=== PATIENT | female | born 1940 | race Caucasian/White ===

== ENCOUNTER 2024-03-17 11:37 | Emergency (ER) | payer OTHER, SELFPAY ==
[2024-03-17 11:45] VITALS: BP 178/91
[2024-03-17 12:28] VITALS: BMI 16.6
--- NOTE | 2024-03-17 12:48 | ED.GENMED ---
History of Present Illness
General
Chief Complaint: Abdominal Symptoms
Source: patient
Exam Limitations: none
Time Seen by Provider: 03/17/24 12:30
Nursing documentation reviewed up to this point in time: agreed with
Travel History
Have you had any contact with someone who has COVID-19?: No
Do you have any symptoms of coronavirus? Fever > 100 degrees, chills, cough, shortness of breath, sore throat, loss of taste or smell, muscle aches, or headache?: No
History of Present Illness
History of Present Illness:
The patient is a 83-year-old female with a past medical history of hypothyroidism, anxiety and depression who reports she is here for testing. She reports she has had a significant weight loss over the last year. She reports over the last few
days, increased frequency of bowel movements that are loose but not watery. She denies any blood in her stool. She denies pain anywhere. She denies fever. She reports she eats plenty of food and access to food is not an issue. She denies chest
pain, shortness of breath, and vomiting. She has no specific complaints other than unexplained weight loss. She reports she is generally 112 pounds. She reports she saw her doctor and was given a prescription to get an ultrasound of her upper
abdomen as well as a mammogram.
Past History
Past History
ED Past Medical History: Hyperthyroidism, Psychiatric and Other
ED Past Surgical History: Other (Sigmoid resection)
Social History
Tobacco: Non-smoker
Alcohol: Occasional
Drug: None
Personal: Single
Living: with family
Employment: Retired
Family History
Family History: CAD
Review of Systems
Review of Systems
Allergies reviewed?: Yes
All Other Systems: ROS reviewed and negative except as documented in HPI and ROS
Constitutional: Reports weight loss
EENT: Reports no symptoms
Respiratory: Reports no symptoms
Cardiac: Reports no symptoms
ABD/GI: Reports other (Loose stool, increased bowel movements)
: Reports no symptoms
Musculoskeletal: Reports no symptoms
Skin: Reports no symptoms
Neurological: Reports no symptoms
Endocrine: Reports no symptoms
Hematologic/Lymphatic: Reports no symptoms
Psychiatric: Reports no symptoms
Phy Exam
Physical Exam
Physical Exam:
Physical Exam
General: no apparent distress, not acutely ill
Neck: supple. no meningeal signs. normal posterior pharynx
Heart: s1/s2 regular rate and rhythm, no murmur. equal radial pulses.
Lungs: no acute respiratory distress. clear bilaterally
Abdomen: normal bowel sounds. not tender. no CVAT
Neuro: alert and oriented. no focal neurological deficits
Skin: no rash
Psychiatric: well kept. interactive and cooperative
Extremities: no edema. no calf tenderness. negative homans. good distal pulses
Course
Orders/Labs/Results
Orders:
Orders
03/17/24 12:47
CR Chest - 2 Views Urgent
Comment:
Reason For Exam: weight loss
US Abdomen Complete/Upper Urgent
Comment:
Reason For Exam: weight loss
03/17/24 12:51
Basic Metabolic Panel Urgent
Complete Blood Count/With Diff Urgent
Lipase Urgent
TSH Urgent
03/17/24 14:02
0.9% Sodium Chloride 500 ml [Nss] 500 ml IV BOLUS
03/17/24 15:38
CT Chest W/o Iv Contrast Urgent
Comment:
Reason For Exam: weight loss
03/17/24 15:57
Potassium Urgent
Abnormal Lab Results
03/17/24
12:51
MCH 32.2 H pg
(27.0-31.0)
Absolute Lymphs (auto) 0.7 L 10^3/uL
(1.2-3.4)
Neutrophils % 78.8 H %
(42.2-75.2)
Lymphocytes % 10.8 L %
(20.5-51.1)
Sodium 132 L mmol/L
(135-145)
BUN 24 H mg/dl
(7-17)
TSH 0.33 L uIU/ml
(0.47-4.68)
03/17/24 12:51
03/17/24 15:57
Vital Signs
Initial and Last Documented VS:
Initial Vital Signs
Temp Resp BP Pulse Ox
98.3 F 18 178/91 98
03/17/24 11:45 03/17/24 11:45 03/17/24 11:45 03/17/24 11:45
Last Documented Vital Signs
Temp Pulse Resp BP Pulse Ox
98.3 F 90 18 160/81 96
03/17/24 11:45 03/17/24 18:26 03/17/24 18:26 03/17/24 18:26 03/17/24 18:26
MDM/Problems Addressed
Differential Diagnosis Includes:
Acutely uncontrolled hyperthyroidism, lung cancer, colon cancer, malabsorption
MDM/Problems Addressed:
Patient complains of chronic weight loss over 1 year
Chronic conditions affecting care:
Hypothyroidism
Acute Exacerbation and/or Progression of Chronic Illness:
Patient may have acutely uncontrolled hyperthyroidism, leading to weight loss
*Radiology
Radiology exam reviewed: preliminary read by ED provider (Chest x-ray read by me. Possible infiltrate left lung) and radiology read reviewed
*Pulse Oximetry
Patient hypoxic: no
*EKG
Interpreted by ED Provider?: NA
*Critical Care Note
Total Time (30-74mins, 75-104mins- exclusive of procedures): Not Applicable
Data Reviewed
Review of Other/Old Records Reveals: Discharge Summary (Discharge summary reviewed from 01/2018 patient underwent open reversible of end colostomy with removal of adhesions.)
Source: patient
Patient Management
Social determinants of health affecting care: Living situation and Strong social support
Escalation/DeEscalation of care consider admission/obs:
Patient remains very well and comfortable appearing. There is no fever, cough or elevated white blood cell count to suggest pneumonia. Patient adamantly denies any cough and has not coughed once in the ED. She is up walking around and looks well.
She is eating and drinking without any difficulty. Patient may have symptoms due to hyperthyroidism. Patient will be encouraged to follow-up with her primary care doctor. I also told patient that she may need to get follow-up with a GI doctor
for possible colonoscopy given her intermittent loose stool and weight loss.
ED Attending Note
-
Portions of this chart may have been created with voice recognition software.� Occasional wrong word or��sound alike� substitutions may have occurred due to the inherent limitations of voice recognition software.
Discharge Plan
Departure
Patient Disposition: Home (Routine Discharge)
Date of Disposition: 03/17/24
Time of Disposition: 18:38
Patient with high blood pressure during this ER visit?: Yes
Condition: Good
Covid-19: Not Applicable
Discharge Problem:
Hyperthyroidism, Unintentional weight loss
Instructions: Hyperthyroidism (overactive thyroid), BLOOD PRESSURE
Prescriptions:
No Action
lactase [Dairy Relief] 1 CAPSULE tablet
1 cap PO AC Qty: 30 0RF
furosemide 20 MG tablet
20 mg PO DAILY Qty: 30 0RF
L.acidoph, paracasei,B. lactis 1 EACH capsule
1 ea PO DAILY
B Complex
1 tab PO DAILY
aspirin 325 MG tablet
325 mg PO DAILY
methimazole 5 MG tablet
5 mg PO DAILY
Patient Comments:
Pt cannot take the generic form
sertraline 50 MG tablet
25 mg PO DAILY
lutein 20 MG tablet
20 mg PO DAILY
cholecalciferol (vitamin D3) 5,000 UNIT tablet,disintegrating
5,000 unit PO DAILY
Bio C Gel
1 cap PO TID
Bone Restore W/ K2
1 tab PO TID
Cod Liver Oil
415 mg PO DAILY
Essential Ointment
1 drp topical PRN PRN (Reason: skin dry)
Vitamin E
180 mg PO DAILY
loperamide 2 MG capsule
2 mg PO Q6HPRN PRN (Reason: loose stools) Qty: 20 0RF
Rx Instructions:
use if more than 3BMs/day
tramadol 50 MG tablet
50 mg PO Q6HPRN PRN (Reason: moderate pain) Qty: 20 0RF
Rx Instructions:
can increase to 2 tabs for seere pain
acetaminophen [Tylenol Extra Strength] 500 MG tablet
1,000 mg PO Q8H 0RF
famotidine 20 MG tablet
20 mg PO BID Qty: 20 0RF
lorazepam 0.5 MG tablet
0.25 mg PO DAILYPRN PRN (Reason: anxiety) 0RF
ascorbic acid (vitamin C) [Vitamin C] 500 MG tablet
500 mg PO TID Qty: 90 2RF
ferrous sulfate [FeroSul] 325 MG tablet
325 mg PO TID Qty: 90 2RF
Saccharomyces boulardii 250 MG capsule
250 mg PO BID Qty: 60 0RF
psyllium husk (aspartame) [Metamucil Fiber Singles] 1 PACKET powder in packet
1 packet PO DAILY 0RF
Referrals:
Diane Brunson MD [Family Provider] -
Activity Restrictions/Additional Instructions:
Please follow-up with your primary care doctor and review all blood work, ultrasound result, chest x-ray result, and CAT scan of chest result.
Interventions
Interventions:
*Risk Screen - Suicide Last Done: 03/17/24 12:28
*General Assessment Last Done: 03/17/24 12:28
*Neglect/Abuse Screening Last Done: 03/17/24 12:28
ED- Fall Risk Assessment Last Done: 03/17/24 12:28
*ED COVID-19 Vaccine History Last Done: 03/17/24 11:45
*Nursing Disposition Last Done: 03/17/24 18:43
HS-Yzcrex-Cxvfscjpqs Assessment Last Done: 03/17/24 12:28
Discharge Date and Time
Discharge Date/Time: 03/17/24 18:44
Print Language: BRUNEIAN
[2024-03-17 13:01] LABS: % Basophils 0.8 % (0-2); % Eosinophils 1.4 % (0-6); % Immature Granulocytes 0.3 % (0-0.5); % Lymphocytes 10.8 % (20.5-51.1); % Monocytes 7.9 % (1.7-9.3); % Neutrophils 78.8 % (42.2-75.2); Absolute Basophils 0.1 10^3/uL (0-0.2); Absolute Eosinophils 0.1 10^3/uL (0-0.7); Absolute Lymphocytes 0.7 10^3/uL (1.2-3.4); Absolute Monocytes 0.5 10^3/uL (0.1-0.6); Hematocrit 41.1 % (37.0-47.0); Mean Corp Hgb Conc. 34.1 g/dL (33.0-37.0); Mean Corpuscular Hgb 32.2 pg (27.0-31.0); Mean Corpuscular Volume 94.5 fL (81.0-99.0); Mean Platelet Volume 9.8 fL (7.4-10.4); Nucleated Red Blood Cells % 0 %; Platelet Count 199 10^3/uL (130-400); Red Blood Cell Count 4.35 10^6/uL (4.20-5.40); Red Cell Dist. Width 14.1 % (11.5-14.5); White Blood Cell Count 6.3 10^3/uL (4.8-10.8)
[2024-03-17 13:25] LABS: Blood Urea Nitrogen 24 mg/dl (7-17); Carbon Dioxide 29 mmol/L (22-30); Chloride 98 mmol/L (98-107); Estimated Creatinine Clearance 28 ml/min; Glucose 91 mg/dl (70-99); Lipase 231 U/L (23-300); Sodium 132 mmol/L (135-145)
[2024-03-17 13:45] LABS: TSH 0.33 uIU/ml (0.47-4.68)
[2024-03-17] MEDS: NSS 500 IV (14:51)
[2024-03-17 16:51] LABS: Potassium 4.5 mmol/L (3.5-5.1)
[2024-03-17 18:26] VITALS: BP 160/81
== END 2024-03-17 18:44 | disposition home or self-care (01) ==
LOC: EMR 11:37
PROVIDERS: EMERGENCY PHYSICIAN Emergency Medicine; FAMILY PHYSICIAN Family Medicine
DX: E05.90 Thyrotoxicosis, unspecified without thyrotoxic crisis or storm (principal); R63.4 Abnormal weight loss; E03.9 Hypothyroidism, unspecified; F41.8 Other specified anxiety disorders; Z82.49 Family history of ischemic heart disease and other diseases of the circulatory system; Z90.11 Acquired absence of right breast and nipple
CPT/HCPCS: 99284; 96360; 71046; 71250; 76700; 80048; 83690; 84132; 84443; 85025

== ENCOUNTER → 2024-06-27 11:37 | Outpatient (REF) | payer OTHER, SELFPAY | LOC: RAD 11:37 | PROVIDERS: ATTENDING PHYSICIAN Internal Medicine Gastroenterology; FAMILY PHYSICIAN Family Medicine | DX: R63.4 Abnormal weight loss (principal) | CPT/HCPCS: 74177; Q9967 ==

== ENCOUNTER → 2024-07-18 06:31 | Day surgery (SDC) | payer OTHER, SELFPAY | LOC: GI 06:31 | PROVIDERS: ATTENDING PHYSICIAN Internal Medicine Gastroenterology | DX: K22.89 Other specified disease of esophagus (principal); R63.4 Abnormal weight loss; B37.81 Candidal esophagitis | CPT/HCPCS: 43239; 88305; 88312; 88342 ==

== ENCOUNTER → 2024-09-05 09:07 | Outpatient (REF) | payer OTHER, SELFPAY | LOC: HWRAD 09:07 | PROVIDERS: ATTENDING PHYSICIAN Internal Medicine Gastroenterology; FAMILY PHYSICIAN Family Medicine | DX: R63.4 Abnormal weight loss (principal) | CPT/HCPCS: 74261 ==

== ENCOUNTER 2024-11-08 12:04 | Emergency (ER) | payer OTHER, SELFPAY ==
[2024-11-08 12:10] VITALS: BP 198/95; BMI 20.7
[2024-11-08 12:43] LABS: % Basophils 1.1 % (0-2); % Eosinophils 1.4 % (0-6); % Immature Granulocytes 0.3 % (0-0.5); % Lymphocytes 11.1 % (20.5-51.1); % Monocytes 7.4 % (1.7-9.3); % Neutrophils 78.7 % (42.2-75.2); Absolute Basophils 0.1 10^3/uL (0-0.2); Absolute Eosinophils 0.1 10^3/uL (0-0.7); Absolute Lymphocytes 0.7 10^3/uL (1.2-3.4); Absolute Monocytes 0.5 10^3/uL (0.1-0.6); Absolute Neutrophils 4.9 10^3/uL (1.4-6.5); Hemoglobin 12.9 g/dL (12.0-16.0); Mean Corp Hgb Conc. 33.1 g/dL (33.0-37.0); Mean Corpuscular Volume 96.8 fL (81.0-99.0); Mean Platelet Volume 10.2 fL (7.4-10.4); Nucleated Red Blood Cells % 0 %; Platelet Count 171 10^3/uL (130-400); Red Blood Cell Count 4.03 10^6/uL (4.20-5.40); Red Cell Dist. Width 14.6 % (11.5-14.5); White Blood Cell Count 6.2 10^3/uL (4.8-10.8)
[2024-11-08 13:22] LABS: ALT (SGPT) 23 U/L (0-35); AST (SGOT) 42 U/L (14-36); Albumin 4.8 g/dl (3.5-5.0); Alkaline Phosphatase 100 U/L (38-126); Blood Urea Nitrogen 23 mg/dl (7-17); Calcium 9.5 mg/dl (8.4-10.2); Carbon Dioxide 26 mmol/L (22-30); Chloride 100 mmol/L (98-107); Estimated Creatinine Clearance 33 ml/min; Glucose 104 mg/dl (70-99); Potassium 4.7 mmol/L (3.5-5.1); Sodium 136 mmol/L (135-145); Total Bilirubin 0.4 mg/dl (0.2-1.3); eGFR 55.55
[2024-11-08 14:30] VITALS: BP 166/70
--- NOTE | 2024-11-08 17:05 | ED.GENMED ---
History of Present Illness
General
Chief Complaint: Weakness
Source: patient
Time Seen by Provider: 11/08/24 16:39
History of Present Illness
History of Present Illness:
84-year-old female with past medical history of breast cancer status post right mastectomy presenting to the emergency department for evaluation of generalized fatigue and a reported weight loss of around 12 pounds that she states has been ongoing
for the last year and a half. Patient states no new symptoms brought her here today but one of her friends who is also a therapist advised the patient come to the ER for further evaluation due to the abnormal weight loss. Patient states that she
has been eating and drinking normally. Denies any fevers or infectious symptoms and otherwise has no new concerns related to her ongoing chronic symptoms. Patient notes that she does have a primary care provider she follows up with regularly but
has not brought up this issue during her examinations.
Past History
Past History
ED Past Medical History: Cancer, Hyperthyroidism, Psychiatric and Other
ED Past Surgical History: Other (Sigmoid resection)
Social History
Tobacco: Non-smoker
Alcohol: Occasional
Drug: None
Personal: Single
Living: with family
Employment: Retired
Family History
Family History: CAD
Review of Systems
Review of Systems
All Other Systems: ROS reviewed and negative except as documented in HPI and ROS
Phy Exam
Physical Exam
Physical Exam:
GENERAL: Alert , in no apparent distress, very thin, petite
HEAD: NCAT
EYE: conjunctiva clear
NECK: Supple
ENT: o/p clr, mmm.
CARDIAC: Regular rate and rhythm
LUNGS: Clear breath sounds bilaterally, no acute respiratory distress, no wheezes/rales/rhonchi
NEUROLOGICAL: Alert and oriented
SKIN: Warm and dry, skin intact.
MUSCULOSKELETAL: well perfused.
PSYCH: Normal and appropriate interaction.
Scores
Heart Failure Risk
Heart Failure Risk Score: Not Applicable
Heart Score for Chest Pain Patients
STEMI patient?: Not applicable
Withdrawal Assessment of Alcohol
Withdrawal Assessment Completed?: Not applicable
Course
Orders/Labs/Results
Orders:
Orders
11/08/24 12:16
Electrocardiogram (*1) Urgent
Reason for Study: Fatigue / Weakness
EKG- Treatment ONCE
11/08/24 12:27
Complete Blood Count/With Diff Urgent
Comprehensive Metabolic Panel Urgent
Abnormal Lab Results
11/08/24
12:27
RBC 4.03 L 10^6/uL
(4.20-5.40)
MCH 32.0 H pg
(27.0-31.0)
RDW 14.6 H %
(11.5-14.5)
Absolute Lymphs (auto) 0.7 L 10^3/uL
(1.2-3.4)
Neutrophils % 78.7 H %
(42.2-75.2)
Lymphocytes % 11.1 L %
(20.5-51.1)
BUN 23 H mg/dl
(7-17)
Glucose 104 H mg/dl
(70-99)
AST 42 H U/L
(14-36)
11/08/24 12:27
11/08/24 12:27
Vital Signs
Initial and Last Documented VS:
Initial Vital Signs
Temp Pulse Resp BP Pulse Ox
98.1 F 102 18 198/95 97
11/08/24 12:10 11/08/24 12:10 11/08/24 12:10 11/08/24 12:10 11/08/24 12:10
Last Documented Vital Signs
Temp Pulse Resp BP Pulse Ox
98.1 F 67 18 166/70 100
11/08/24 12:10 11/08/24 14:30 11/08/24 14:30 11/08/24 14:30 11/08/24 14:30
MDM/Problems Addressed
Differential Diagnosis Includes:
malnutrition, anemia, electrolyte imbalance, malignancy,
MDM/Problems Addressed:
84-year-old female presenting to the ER reporting that in the last year and a half she has lost approximately 13 pounds and has been dealing with some generalized weakness but notes no change in her symptoms today that her to the ER. On record
review patient was seen here in March and at that time we did not 41 kg, today weighs 51.2 kg. Patient is hemodynamically stable and in no acute distress. Her labs were ordered from triage which does not show any leukocytosis, anemia or significant
electrolyte derangement. Overall I do not have any suspicion for any acute emergent pathology however given the patient's reported weight loss and continued generalized weakness I do feel it be best served for patient to follow-up closely with
primary care provider. I notified patient's primary care provider, Dr. Brunson, via [facility] text in hopes that her office will reach out to the patient to help expedite an outpatient follow-up. Patient will be stable for discharge home and discussed
return precautions.
*Pulse Oximetry
Patient hypoxic: no
*Forensic Psychologist Interpretation
Rate: normal
Rhythm: sinus
*Critical Care Note
Total Time (30-74mins, 75-104mins- exclusive of procedures): Not Applicable
Data Reviewed
Review of Other/Old Records Reveals: Records
Patient Management
Escalation/DeEscalation of care consider admission/obs:
After my examination patient was seen attempting to walk out of the ER. I attempted to offer her to go back to her room to obtain chest x-ray and urinalysis however she declines and prefers to be discharged home. Patient ambulated with steady
gait. I do not think the chest x-ray would have changed patient's disposition or management and this was merely ordered to help continue and facilitate her outpatient workup. Prior to patient being discharged I had yet to hear back from primary
care provider. I encouraged the patient that if she does not hear from her primary care provider within the next week or so to reach out to schedule a follow-up visit.
ED Attending Note
-
Portions of this chart may have been created with voice recognition software.� Occasional wrong word or��sound alike� substitutions may have occurred due to the inherent limitations of voice recognition software.
Discharge Plan
Departure
Patient Disposition: Home (Routine Discharge)
Date of Disposition: 11/08/24
Time of Disposition: 17:19
Patient with high blood pressure during this ER visit?: Yes
Discharge Problem:
Unexplained weight loss
Instructions: Generalized Weakness (DC)
Prescriptions:
No Action
lactase [Dairy Relief] 1 CAPSULE tablet
1 cap PO AC Qty: 30 0RF
furosemide 20 MG tablet
20 mg PO DAILY Qty: 30 0RF
L.acidoph,paracasei,B.animalis 1 EACH capsule
1 ea PO DAILY
B Complex
1 tab PO DAILY
aspirin 325 MG tablet
325 mg PO DAILY
methimazole 5 MG tablet
5 mg PO DAILY
Patient Comments:
Pt cannot take the generic form
sertraline 50 MG tablet
25 mg PO DAILY
lutein 20 MG tablet
20 mg PO DAILY
cholecalciferol (vitamin D3) 5,000 UNIT tablet,disintegrating
5,000 unit PO DAILY
Bio C Gel
1 cap PO TID
Bone Restore W/ K2
1 tab PO TID
Cod Liver Oil
415 mg PO DAILY
Essential Ointment
1 drp topical PRN PRN (Reason: skin dry)
Vitamin E
180 mg PO DAILY
loperamide 2 MG capsule
2 mg PO Q6HPRN PRN (Reason: loose stools) Qty: 20 0RF
Rx Instructions:
use if more than 3BMs/day
tramadol 50 MG tablet
50 mg PO Q6HPRN PRN (Reason: moderate pain) Qty: 20 0RF
Rx Instructions:
can increase to 2 tabs for seere pain
acetaminophen [Tylenol Extra Strength] 500 MG tablet
1,000 mg PO Q8H 0RF
famotidine 20 MG tablet
20 mg PO BID Qty: 20 0RF
lorazepam 0.5 MG tablet
0.25 mg PO DAILYPRN PRN (Reason: anxiety) 0RF
ascorbic acid (vitamin C) [Vitamin C] 500 MG tablet
500 mg PO TID Qty: 90 2RF
ferrous sulfate [FeroSul] 325 MG tablet
325 mg PO TID Qty: 90 2RF
Saccharomyces boulardii 250 MG capsule
250 mg PO BID Qty: 60 0RF
psyllium husk (aspartame) [Metamucil Fiber Singles] 1 PACKET powder in packet
1 packet PO DAILY 0RF
Referrals:
Diane Brunson MD [Family Provider] -
Interventions
Interventions:
*Risk Screen - Suicide Last Done: 11/08/24 12:10
*General Assessment Last Done: 11/08/24 16:23
*Neglect/Abuse Screening Last Done: 11/08/24 16:23
*ED COVID-19 Vaccine History Last Done: 11/08/24 12:10
ED- Cardiac Assessment Last Done: 11/08/24 16:23
ED- Neurological Assessment Last Done: 11/08/24 16:23
ED- Pulmonary Assessment Last Done: 11/08/24 16:23
Discharge Date and Time
Print Language: UZBEK
== END 2024-11-08 18:32 | disposition home or self-care (01) ==
LOC: EMR 12:04
PROVIDERS: Emergency Medicine; EMERGENCY PHYSICIAN Emergency Medicine; FAMILY PHYSICIAN Family Medicine
DX: R63.4 Abnormal weight loss (principal); E05.90 Thyrotoxicosis, unspecified without thyrotoxic crisis or storm; Z82.49 Family history of ischemic heart disease and other diseases of the circulatory system; Z85.3 Personal history of malignant neoplasm of breast; Z90.11 Acquired absence of right breast and nipple
CPT/HCPCS: 99283; 80053; 85025; 93005

== ENCOUNTER 2025-01-06 13:30 | Inpatient (IN) | payer OTHER, SELFPAY ==
[2025-01-05] VITALS (9 sets, daily range): BP systolic 137–170; BP diastolic 51–84; BMI 16.0
[2025-01-05 02:07] LABS: % Basophils 0.7 % (0-2); % Eosinophils 3.9 % (0-6); % Immature Granulocytes 0.2 % (0-0.5); % Lymphocytes 16.1 % (20.5-51.1); % Monocytes 9.3 % (1.7-9.3); % Neutrophils 69.8 % (42.2-75.2); Absolute Eosinophils 0.2 10^3/uL (0-0.7); Absolute Lymphocytes 0.9 10^3/uL (1.2-3.4); Absolute Monocytes 0.5 10^3/uL (0.1-0.6); Absolute Neutrophils 3.8 10^3/uL (1.4-6.5); Hematocrit 37.6 % (37.0-47.0); Hemoglobin 12.3 g/dL (12.0-16.0); Mean Corp Hgb Conc. 32.7 g/dL (33.0-37.0); Mean Corpuscular Hgb 32.2 pg (27.0-31.0); Mean Corpuscular Volume 98.4 fL (81.0-99.0); Mean Platelet Volume 9.8 fL (7.4-10.4); Nucleated Red Blood Cells % 0 %; Platelet Count 163 10^3/uL (130-400); Red Blood Cell Count 3.82 10^6/uL (4.20-5.40); Red Cell Dist. Width 13.8 % (11.5-14.5); White Blood Cell Count 5.4 10^3/uL (4.8-10.8)
--- NOTE | 2025-01-05 02:20 | ED.GENMED ---
History of Present Illness
General
Chief Complaint: Rectal Bleeding
Source: patient, ambulance crew and previous hospital records
Exam Limitations: none
Time Seen by Provider: 01/05/25 02:07
Nursing documentation reviewed up to this point in time: agreed with
History of Present Illness
History of Present Illness:
This is an 84-year-old woman with history of hypertension, hypothyroidism, history of bleeding gastric ulcer 2021. She also has remote history of right breast cancer 1994.
Prior records also note laparoscopy 2016 converted to open sigmoid resection with creation of Sarabia's pouch and abdominal washout. January 2018, lysis of adhesions and reversal of colostomy.
More recently has been suffering with several month history of abnormal weight loss. Underwent upper endoscopy July 2024 revealing esophageal plaques but otherwise unremarkable.
Colonoscopy not performed at that time.
She states she normally wears a pad to bed but awoke with feeling of wetness on her pad and upon further evaluation wetness discovered to be bright red blood which she states was 'a lot of blood' soaking the pad. She is unsure where the bleeding is
originating from.
She denies abdominal pain, denies dizziness nor lightheadedness, denies nausea nor vomiting.
She does have history of intermittent constipation and used to suppositories yesterday or the day prior and states she passed a normal firm nonbloody stool.
Past History
Past History
ED Past Medical History: Cancer, Hyperthyroidism, Psychiatric and Other (Bleeding gastric ulcer)
ED Past Surgical History: Other (Sigmoid resection)
Social History
Tobacco: Non-smoker
Alcohol: Occasional
Drug: None
Personal: Single
Living: with family
Employment: Retired
Family History
Family History: CAD
Phy Exam
Physical Exam
Physical Exam:
GENERAL: 84-year-old quite thin, frail appearing woman is bright and alert, pleasant, easily communicative, appears in no acute distress. Hemodynamically stable.
EYE: . anicteric
NECK: Supple, nontender, no meningismus, no significant adenopathy.
ENT: posterior pharynx is clear, oral mucosa is mildly dry. No rhinorrhea.
CARDIAC: Regular rate and rhythm. no murmur.
LUNGS: Clear breath sounds bilaterally, no acute respiratory distress, no wheezes/rales/rhonchi
ABDOMEN: Soft, nondistended, without focal tenderness, no r/g, no cvat. normoactive BS. Rectal exam reveals firm stool within the vault as well as moderate amount of maroon blood that is heme positive.
NEUROLOGICAL: Alert and oriented x3, no focal neuro deficits.
SKIN: Warm and dry, normal color, skin intact. No rash.
MUSCULOSKELETAL: No C/C/E. peripheral pulses are full and equal b/l. No palpable tenderness.
PSYCH: Normal and appropriate interaction.
Course
Orders/Labs/Results
Orders:
Orders
01/05/25 01:54
Type+Screen Urgent
Complete Blood Count/With Diff Urgent
Comprehensive Metabolic Panel Urgent
01/05/25 02:21
Electrocardiogram (*1) Urgent
Reason for Study: Abdominal Pain
EKG- Treatment ONCE
0.9% Sodium Chloride 1000 ml [Nss] 1,000 ml IV BOLUS
01/05/25 02:28
Lactic Acid Urgent
Abnormal Lab Results
01/05/25
01:54
RBC 3.82 L 10^6/uL
(4.20-5.40)
MCH 32.2 H pg
(27.0-31.0)
MCHC 32.7 L g/dL
(33.0-37.0)
Absolute Lymphs (auto) 0.9 L 10^3/uL
(1.2-3.4)
Lymphocytes % 16.1 L %
(20.5-51.1)
Potassium 3.3 L mmol/L
(3.5-5.1)
Carbon Dioxide 31 H mmol/L
(22-30)
BUN 37 H mg/dl
(7-17)
Creatinine 1.2 H mg/dL
(0.6-1.0)
Glucose 100 H mg/dl
(70-99)
AST 38 H U/L
(14-36)
01/05/25 01:54
01/05/25 01:54
Vital Signs
Initial and Last Documented VS:
Initial Vital Signs
Temp Pulse Resp BP Pulse Ox
97.7 F 75 16 170/84 97
01/05/25 01:43 01/05/25 01:43 01/05/25 01:43 01/05/25 01:43 01/05/25 01:43
Last Documented Vital Signs
Temp Pulse Resp BP Pulse Ox
97.7 F 75 16 170/84 96
01/05/25 01:43 01/05/25 01:43 01/05/25 01:43 01/05/25 01:43 01/05/25 02:30
MDM/Problems Addressed
Differential Diagnosis Includes:
Patient presents with acute rectal bleeding.
Rectal exam positive for maroon blood.
She remains hemodynamically stable.
Abdomen is soft without appreciable tenderness.
She does have prior history of gastric ulcer bleeding thus must consider upper GI bleed versus lower GI bleed.
Will initiate IV fluids as well as IV Protonix.
Labs are pending.
Consider imaging such as CT angio of the abdomen and pelvis depending on clinical course and laboratory studies.
Chronic conditions affecting care: HTN, Previous abdomnial surgery and Other (Hypothyroidism, advanced age)
*Pulse Oximetry
Patient hypoxic: no
*EKG
Interpreted by ED Provider?: Yes
Comparison EKG: no changes (Unchanged from previous November 08, 2024)
Rate: normal
Rhythm: sinus
Abbot: normal axis
Interval: normal interval
QRS Pattern: poor R-wave progression
Ischemia: no ischemia
*Ortho Tech Interpretation
Rate: normal
Interpretation: normal
Rhythm: sinus
*Critical Care Note
Total Time (30-74mins, 75-104mins- exclusive of procedures): Not Applicable
Update Note
Update Note:
Patient remains hemodynamically stable.
Thus far no further rectal bleeding.
Abdomen remains soft without appreciable tenderness.
Labs reveal normal CBC
Chemistries reveal uptrend in BUN and creatinine
Will continue IV fluids, continue Protonix and will admit to hospitalist service.
ED Attending Note
-
Portions of this chart may have been created with voice recognition software.� Occasional wrong word or��sound alike� substitutions may have occurred due to the inherent limitations of voice recognition software.
Discharge Plan
Departure
Patient Disposition: Admit
Date of Disposition: 01/05/25
Time of Disposition: 03:13
Admit to: IMU
Admit to doctor: Anatoliy
Presentation/result/management discussed w/ accepting MD/DO: Hospitalist
Condition: Serious
Discharge Problem:
Acute gastrointestinal bleeding, Acute kidney injury
Prescriptions:
No Action
lactase [Dairy Relief] 1 CAPSULE tablet
1 cap PO AC Qty: 30 0RF
furosemide 20 MG tablet
20 mg PO DAILY Qty: 30 0RF
L.acidoph,paracasei,B.animalis 1 EACH capsule
1 ea PO DAILY
B Complex
1 tab PO DAILY
aspirin 325 MG tablet
325 mg PO DAILY
methimazole 5 MG tablet
5 mg PO DAILY
Patient Comments:
Pt cannot take the generic form
sertraline 50 MG tablet
25 mg PO DAILY
lutein 20 MG tablet
20 mg PO DAILY
cholecalciferol (vitamin D3) 5,000 UNIT tablet,disintegrating
5,000 unit PO DAILY
Bio C Gel
1 cap PO TID
Bone Restore W/ K2
1 tab PO TID
Cod Liver Oil
415 mg PO DAILY
Essential Ointment
1 drp topical PRN PRN (Reason: skin dry)
Vitamin E
180 mg PO DAILY
loperamide 2 MG capsule
2 mg PO Q6HPRN PRN (Reason: loose stools) Qty: 20 0RF
Rx Instructions:
use if more than 3BMs/day
tramadol 50 MG tablet
50 mg PO Q6HPRN PRN (Reason: moderate pain) Qty: 20 0RF
Rx Instructions:
can increase to 2 tabs for seere pain
acetaminophen [Tylenol Extra Strength] 500 MG tablet
1,000 mg PO Q8H 0RF
famotidine 20 MG tablet
20 mg PO BID Qty: 20 0RF
lorazepam 0.5 MG tablet
0.25 mg PO DAILYPRN PRN (Reason: anxiety) 0RF
ascorbic acid (vitamin C) [Vitamin C] 500 MG tablet
500 mg PO TID Qty: 90 2RF
ferrous sulfate [FeroSul] 325 MG tablet
325 mg PO TID Qty: 90 2RF
Saccharomyces boulardii 250 MG capsule
250 mg PO BID Qty: 60 0RF
psyllium husk (aspartame) [Metamucil Fiber Singles] 1 PACKET powder in packet
1 packet PO DAILY 0RF
Referrals:
UNKNOWN - PT DOES,NOT KNOW [Family Provider] -
Interventions
Interventions:
*Risk Screen - Suicide Last Done: 01/05/25 01:46
*General Assessment Last Done: 01/05/25 01:46
*Neglect/Abuse Screening Last Done: 01/05/25 01:46
*ED COVID-19 Vaccine History Last Done: 01/05/25 01:46
CC-Otokbg-Ouwownfgva Assessment Last Done: 01/05/25 02:27
ED- Cardiac Assessment Last Done: 01/05/25 02:27
ED- Pulmonary Assessment Last Done: 01/05/25 02:22
Discharge Date and Time
Print Language: BAHAMIAN
[2025-01-05 02:26] LABS: ALT (SGPT) 21 U/L (0-35); AST (SGOT) 38 U/L (14-36); Albumin 4.6 g/dl (3.5-5.0); Alkaline Phosphatase 126 U/L (38-126); Blood Urea Nitrogen 37 mg/dl (7-17); Calcium 9.4 mg/dl (8.4-10.2); Carbon Dioxide 31 mmol/L (22-30); Chloride 98 mmol/L (98-107); Estimated Creatinine Clearance 22 ml/min; Glucose 100 mg/dl (70-99); Potassium 3.3 mmol/L (3.5-5.1); Sodium 138 mmol/L (135-145); Total Bilirubin 0.8 mg/dl (0.2-1.3); Total Protein 6.7 g/dl (6.3-8.2); eGFR 44.64
[2025-01-05] MEDS: NSS 1000 IV (02:30)
[2025-01-05 03:02] LABS: Lactic Acid 1.2 mmol/L (0.7-2.0)
[2025-01-05] MEDS: PROTONIX IV 40 MG IV ×3 (03:29→20:29)
--- NOTE | 2025-01-05 04:24 | HPS.HSE ---
Family Physician
-
Family Physician: NOT KNOW UNKNOWN - PT DOES
Chief Complaint
-
Rectal bleeding
History of Present Illness
Patient is an 84y F with PMH significant for hyperthyroidism, hypertension and GERD who presents to ED complaining of bright red blood per rectum. Patient states that she was feeling fairly well when she went to bed this evening. She woke in
the middle of the night and felt wet. She went into the bathroom and noted that there was bright red blood all over her pad. Further blood appreciated on the floor, in the toilet. She estimates 'at least' a cup in total volume.
Patient denies any abdominal pain, rectal pain, N/V, etc. She is on no OAC, antiplatelets, etc.
No prior history of rectal bleeding.
She had EGD done last Fall that showed esophageal Candidiasis.
She has not had colonoscopy as she apparently is unable to tolerate the prep.
Medical History
Past Medical History
Past Medical History: Reports Other
Additional Past Medical History:
Hyperthyroidism
Anxiety / Depression
Breast Cancer
Hypertension
GERD / PUD
Esophageal Candidiasis
Past Surgical History: Reports Other
Additional Past Surgical History:
Right Mastectomy
Sigmoid Resection / Colostomy
Colostomy Reversal
Cholecystectomy
Social History
Tobacco: Non-smoker
Alcohol: Occasional
Drug: None
Family History
Family History: Not pertinent
Allergies / Home Medications
Allergies reflects when Allergies were last updated in [facility].
Home Medications with original date entered in [facility]
Allergy/Medication List:
Allergies
Allergy/AdvReac Type Severity Reaction Status Date / Time
prochlorperazine Allergy 1960 had Verified 03/17/24 11:47
palpitations
Home Medications
diltiazem HCl 180 mg capsule,24 hr,extended release 180 mg PO DAILY 01/05/25
mirtazapine 7.5 mg tablet 7.5 mg PO HS 01/05/25
pantoprazole 40 mg tablet,delayed release 40 mg PO BID 01/05/25
propylthiouracil 50 mg tablet 50 mg PO BID 01/05/25
temazepam 15 mg capsule 15 mg PO HS PRN sleep 01/05/25
valsartan 80 mg tablet 80 mg PO DAILY 01/05/25
vit C 250 mg-E 90 mg-zinc 40 mg-copper 1 qa-[id number]-hlddag chew tablet (PreserVision AREDS-2) 1 tab PO QAM AND QPM 01/05/25
Review of Systems
-
History Source: Patient
A 12 point ROS was completed and negative except as noted: Yes
Constitutional: Denies Fever or Chills
Respiratory: Denies Cough or Trouble Breathing
Cardiac: Denies Chest Pain or Palpitations
Abdomen/GI: Reports Bloody Stools; Denies Abdominal Pain, Nausea, Vomiting or Diarrhea
: Denies Dysuria, Frequency, Flank Pain or Bleeding
Musculoskeletal: Denies Joint Pain or Edema
Neurological: Denies Dizzy or Headache
Psych: Reports Anxiety; Denies Depression
Physical Exam
Vital Signs
Vital Signs
Temp Pulse Resp BP Pulse Ox
97.7 F 75 16 170/84 96
01/05/25 01:43 01/05/25 01:43 01/05/25 01:43 01/05/25 01:43 01/05/25 02:30
Physical Exam
General: Other (84y F sleeping comfortably. Wakes easily. No acute distress)
HEENT: Moist mucous membranes
Respiratory: Clear; No Wheezes, Rales or Rhonchi
Cardiac: S1/S2 and Regular Rhythm
GI: Soft, Non Tender, Non Distended and Normal Bowel Sounds
Musculoskeletal: No Clubbing, No Cyanosis and No Edema
Neuro: AO x 3
Laboratory Results
-
01/05/25 01:54
01/05/25 01:54
Laboratory Results
Lactic Acid 1.2 mmol/L (0.7-2.0) 01/05/25 02:28
Total Bilirubin 0.8 mg/dl (0.2-1.3) 01/05/25 01:54
AST 38 U/L (14-36) H 01/05/25 01:54
ALT 21 U/L (0-35) 01/05/25 01:54
Alkaline Phosphatase 126 U/L (38-126) 01/05/25 01:54
Impression/Plan
-
A/P: Patient is an 84y F with PMH significant for GERD, hypertension and hyperthyroidism who presents to ED after waking this evening with BRB on her pad.
BRBPR
- Observe overnight for further evaluation and treatment.
- Monitor for any further bleeding and check CTA / bleeding scan if further BRBPR.
- Currently hemodynamically stable. Hgb stable.
- Follow for any changes in vitals, exam, H&H.
- GI evaluation in the AM for additional recommendations.
GERD / PUD
- Continue PPI.
Benign Hypertension
- Stable. Continue current medications with holding parameters.
Hyperthyroidism
- Stable. Continue current PTU dosing.
Anxiety / Depression
- Stable. Continue mirtazapine.
DVT Prophylaxis: SCDs
Code Status: Full
[2025-01-05] MEDS: FLUSH (NSS) 1 FLUSH IV (05:08)
[2025-01-05] MEDS: DIOVAN 80 MG PO (08:42)
[2025-01-05] MEDS: LR 1000 IV ×2 (08:42→17:20)
[2025-01-05] MEDS: CARDIZEM CD 180 MG PO (08:43)
[2025-01-05] MEDS: NSS (PRESERVATIVE FREE) 10 ML IV ×2 (08:43→20:29)
[2025-01-05] MEDS: PROPYLTHIOURACIL 50 MG PO ×2 (09:19→20:30)
[2025-01-05 09:24] LABS: Hematocrit 35.8 % (37.0-47.0); Hemoglobin 11.6 g/dL (12.0-16.0); Mean Corp Hgb Conc. 32.4 g/dL (33.0-37.0); Mean Corpuscular Hgb 32.1 pg (27.0-31.0); Mean Corpuscular Volume 99.2 fL (81.0-99.0); Mean Platelet Volume 9.8 fL (7.4-10.4); Platelet Count 163 10^3/uL (130-400); Red Blood Cell Count 3.61 10^6/uL (4.20-5.40); Red Cell Dist. Width 13.8 % (11.5-14.5); White Blood Cell Count 5.3 10^3/uL (4.8-10.8)
[2025-01-05 09:39] LABS: Blood Urea Nitrogen 26 mg/dl (7-17); Calcium 8.6 mg/dl (8.4-10.2); Carbon Dioxide 30 mmol/L (22-30); Chloride 102 mmol/L (98-107); Estimated Creatinine Clearance 26 ml/min; Glucose 88 mg/dl (70-99); Potassium 3.3 mmol/L (3.5-5.1); Sodium 137 mmol/L (135-145); eGFR 55.55
--- NOTE | 2025-01-05 10:07 | CON.GI ---
Addendum entered and electronically signed by Bandar Sheth MD 01/05/25 16:45:
I saw and evaluated the patient. I reviewed the resident�s note and agree with findings and plan as documented in the resident�s note.
84yo female presents with rectal bleeding. She awoke and found her pad wet with blood. She has hx diverticulitis with perforation in 2017 s/p colostomy with reversal. She has chronic constipation and tried using suppositories. She recently saw
Dr Sunshine in the GI office for weight loss. She was scheduled for EGD/colonoscopy but was unable to do the bowel prep. EGD showed esophageal candidiasis and questionable paraesophageal hernia. She has hx and cauterization. No ulcer seen on
EGD 07/18/24. She went on to have virtual colonoscopy which was negative.
In ER she passed bloody stool and clots. Rectal exam notable for fecal impaction, which was digitally disimpacted. Hgb 12.3 on admission and repeat 11.6. Xray shows moderate stool within colon.
REC:
Bleeding likely due to fecal impaction and possible stercoral colitis
Give milk and molasses enema
Continue miralax
Follow Hgb
If ongoing bleeding, consider colonoscopy, but conservative approach may be better, especially since she had recent virtual colonoscopy 09/05/24, which did not show any evidence for colon tumor
Original Note:
Consultation
-
Date/Time Consultation Requested: 01/05/25 05:36
Date/Time Consultation Performed: 01/05/25 09.36
Requesting Provider: Mars Cope DO
Performing Provider: Steph Saldivar MD
Reason for Consultation: GI Bleeding
Medical History
Chief Complaint / HPI
Chief Complaint: Rectal bleeding
History of Present Illness:
The patient is a 85 year-old female with a PMH of hyperthyroidism, hypertension, CKD, GERD and hx of diverticulitis complicated with perforation s/p laparotomy in 2017 with Dylan`s pouch/ reversal colostomy in 2018 who presented to ER today
after having an episode of rectal bleeding. The patient reported having pad during the night for a while and felt wet in the middle of the night. When she went bathroom she saw red-fresh colored blood on her pad and more blood in the toilet bowl and
floor. The patient reports having constipation for a long time and using sometimes suppositories and her last use was 3 days ago. She is not sure if she had any bowel movement after she applied it but reported possible hard small amount of stool.
The patient is not a good historian and had difficulty to recall her previous hospitalizations. She denied abdominal pain, nausea, vomiting, hematemesis, dysphagia, diarrhea, sick contact, NSAID use, being on anticoagulant or a similar episode.
She endorsed severe back pain, constipation and loosing weight (about 30 pounds since last year). Per patient reports, she was brought to [facility] about one year ago and an ulcer was found with her due baing on many medications and it
was cauterized. She could not remember any details but she told she remembers cauterization. Per chart review ( 07/18/24), the patient has hx ogf gastric ulcers secondary to NSAID use treated at [facility] in 2021 with repeat EGD in August
showing residual but healing ulcer.
The patient had EGD done in [place] on 07/18/[address] Sunshine showing multiple plaques in the entire esophagus and in the middle third of the esophagus and normal duodenum and stomach. She had a CT Virtual Colon Diagnostic on 09/05/24 was
not remarkable.
Past Medical History
Past Medical History: Hyperthyroidism, Psychiatric (Anxiety / Depression) and Other (Breast Cancer, Esophageal candidiasis, CKD)
Past Surgical History: Other ( hx of diverticulitis complicated with perforation s/p laparotomy in 2017 with Dylan`s pouch/ reversal colostomy in 2018, Right Mastectomy,Cholecystectomy)
Social History
Tobacco: Non-Smoker
Alcohol: Occasional
Drug: None
Family History
Family History: Reviewed & Not Pertinent
Allergies / Home Medications
Allergy/AdvReac Type Severity Reaction Status Date / Time
prochlorperazine Allergy 1960 had Verified 03/17/24 11:47
palpitations
�Medication �Instructions �Recorded
diltiazem HCl 180 mg capsule,24 180 mg PO DAILY 01/05/25
hr,extended release
mirtazapine 7.5 mg tablet 7.5 mg PO HS 01/05/25
pantoprazole 40 mg tablet,delayed 40 mg PO BID 01/05/25
release
propylthiouracil 50 mg tablet 50 mg PO BID 01/05/25
temazepam 15 mg capsule 15 mg PO HS PRN sleep 01/05/25
valsartan 80 mg tablet 80 mg PO DAILY 01/05/25
vit C 250 mg-E 90 mg-zinc 40 1 tab PO QAM AND QPM 01/05/25
mg-copper 1 [id number] chew
tablet (PreserVision AREDS-2)
Review of Systems
-
Unable to obtain full review of systems at this time due to: Other (Difficulty to recall )
History Source: Patient and Other (medical records )
Constitutional: Reports Weight Loss, Fatigue and Sleep Disturbance
EENT: Reports No Symptoms
Respiratory: Reports No Symptoms
Cardiac: Reports No Symptoms
Abdomen/GI: Reports Constipated and Other (lower GI bleeding )
: Reports No Symptoms
Musculoskeletal: Reports Other (back pain )
Skin: Reports No Symptoms
Neurological: Reports No Symptoms
Vital Signs
Temp Pulse Resp BP Pulse Ox
97.7 F 90 16 149/70 93
01/05/25 01:43 01/05/25 08:43 01/05/25 01:43 01/05/25 08:43 01/05/25 08:00
Physical Exam
Exam
General: Other (Appears chronically ill )
HEENT: Normocephalic and Anicteric
Respiratory: Clear
Cardiac: S1/S2 and Regular Rhythm
GI: Soft, Non Tender, Non Distended, Normal Bowel Sounds and Tender (some generalized mild tenderness to palpae, no guarding no rebound )
Rectal: Red and Hem Positive
Musculoskeletal: No Clubbing, No Cyanosis and No Edema
Skin: Warm
Neuro: Awake, Alert, Oriented, AO x 3 and Nonfocal/Grossly Intact
Results
WBC 5.3 10^3/uL (4.8-10.8) 01/05/25 08:53
Hgb 11.6 g/dL (12.0-16.0) L 01/05/25 08:53
Hct 35.8 % (37.0-47.0) L 01/05/25 08:53
MCV 99.2 fL (81.0-99.0) H 01/05/25 08:53
Plt Count 163 10^3/uL (130-400) 01/05/25 08:53
Absolute Neuts (auto) 3.8 10^3/uL (1.4-6.5) 01/05/25 01:54
Sodium 137 mmol/L (135-145) 01/05/25 08:53
Potassium 3.3 mmol/L (3.5-5.1) L 01/05/25 08:53
Chloride 102 mmol/L (98-107) 01/05/25 08:53
Carbon Dioxide 30 mmol/L (22-30) 01/05/25 08:53
BUN 26 mg/dl (7-17) H 01/05/25 08:53
Creatinine 1.0 mg/dL (0.6-1.0) 01/05/25 08:53
Calcium 8.6 mg/dl (8.4-10.2) 01/05/25 08:53
Total Bilirubin 0.8 mg/dl (0.2-1.3) 01/05/25 01:54
AST 38 U/L (14-36) H 01/05/25 01:54
ALT 21 U/L (0-35) 01/05/25 01:54
Alkaline Phosphatase 126 U/L (38-126) 01/05/25 01:54
Diagnostic Image Results:
Prior GI Procedures:
EGD: 07/18/2024
Findings:
Multiple small plaques were found in the entire esophagus. Biopsies were
taken with a cold forceps for histology.
The entire examined stomach was normal. Biopsies were taken with a cold
forceps for histology.
The examined duodenum was normal. Biopsies for histology were taken with
a cold forceps for evaluation of celiac disease.
Questionable paraesophageal hernia from 40 cm to 34 cm. Pinch seen at 40.
Impression: - Multiple plaques in the entire esophagus and in the
middle third of the esophagus. Biopsied.
- Normal stomach. Biopsied.
- Normal examined duodenum. Biopsied.
FINAL DIAGNOSIS
A. Duodenum, random, biopsy:
Unremarkable duodenal mucosa with well-formed villi.
B. Stomach, random, biopsy:
Unremarkable gastric mucosa.
Immunostain is negative for Helicobacter.
C. Esophagus, white plaques, biopsy:
Esophageal candidiasis.
Colonoscopy:
09/05/24
Exams: CT Virtual Colon Diagnostic
FINDINGS:
The entire colon was imaged from the rectum to the cecum. The ileocecal valve is identified and unremarkable. The appendix Is unremarkable.
There is evidence of previous partial sigmoid resection with end-to-side anastomosis. The blind end of the rectum associated with the anastomosis is remains collapsed, and nondiagnostic.
Otherwise, no clinically significant polyps are detected.
Extracolonic findings:
Overall, evaluation is limited secondary to low-dose technique, as well as lack of intrinsic fat contrast and lack of oral contrast opacifying small bowel loops.
Chronic asymmetric left renal atrophy.
Slightly distended right renal extrarenal pelvis.
Right paramidline pelvic/adnexal cystic structure measuring approximately 1.5 cm, previously measuring 2 cm.
Left scoliosis. Multilevel facet arthrosis. No acute vertebral compression deformity. Advanced disc space narrowing and endplate sclerosis at T12-L1.
At the lung bases, as demonstrated on prior examination, there are regions of bronchiectasis noted, most pronounced in the posterior left lower lobe; on the supine examination, there is progressive endoluminal opacity, and associated parenchymal
consolidation, which demonstrates improved aeration during prone positioning. Peripheral rounded opacities in the left lower lobe appear relatively stable. Mild medial segment right middle lobe bronchiectasis with mucous plugging. Mild
reticulonodular opacity likely reflecting bronchiectasis and mucous plugging in the posterolateral right costophrenic angle has progressed slightly.
IMPRESSION:
Previous partial sigmoid resection with end-to-side anastomosis. The blind end of the rectum associated with the anastomosis is remains collapsed, and nondiagnostic.
Otherwise, no clinically significant polyps are identified.
Chronic bronchiectasis at the lung bases with mucous plugging and pleural parenchymal nodular opacities.
Automated exposure control was utilized for the examination.
Assessment / Plan
-
Assessment
Ms Weeks is a 84 year old female who presented to the hospital following an episode of having painless rectal bleeding episode. The patient noticed her bleeding on her pad in the middle of the night when she woke up to got the bathroom. She denies a
similar apiode before and reports using a suppository 3 days ago to have a bowel movement. She is not sure if she had any bowel movement after she applied it but reported possible hard small amount of stool. The patient is not a good historian and
had difficulty to recall her previous hospitalizations The patient has an extensive past medical history of GI problems including hx of diverticulitis complicated with perforation s/p laparotomy in 2016 with Dylan`s pouch/ reversal colostomy in
2017, gastric ulcer secondary to NSAID use in 2021, GERD and Esophageal Candidiasis . She denied abdominal pain, nausea, vomiting, hematemesis, dysphagia, diarrhea, sick contact, NSAID use, being on anticoagulant or a similar episode. She endorsed
severe back pain, constipation and loosing weight (about 30 pounds since last year). Per chart review ( 07/18/24), the patient has hx gastric ulcers secondary to NSAID use treated at [facility] in 2021 with repeat EGD in August showing
residual but healing ulcer. Her assumably following endoscopy was done in in [place] on 07/18/[address] Sunshine showing multiple plaques in the entire esophagus and normal duodenum and stomach. She had a CT Virtual Colon Diagnostic on
09/05/24 was not remarkable. Lab results showed hgb level at 12.3 and BUN to 26 H.
Impression
Lower GI bleeding
Constipation
HX of diverticulitis complicated with perforation S/P laparotomy in 2017
Hx of Gastric Ulcer
Hypertension
Hyperthyroidism
CKD
Anxiety / Depression
Chronic Back pain
#GI bleeding likely lower GI bleeding vs Upper GI bleeding
-Hx of constipation/hard small stool pieces on rectal exam
-Obstructive series planned
-Laxatives can be started if there is not carrington obstruction
-Clear Liquid diet
-Continue PPI BID
GI team will follow up the patinet.
-
-
Thank you for consultation and allowing me to participate in the patient's care. Please call the supervisor [employer] GI physician during the after hours with any questions or concerns.
--- NOTE | 2025-01-05 13:02 | W.PN.HOSP.TC ---
Today's Communication/Plan
-
Monitor vital signs see plan
Clears for now
Obstruction series
GI following
PPI
Replete potassium
Nonbillable note
Assessment / Plan
Assessment / Plan
General: Other (84y F sleeping comfortably. Wakes easily. No acute distress)
HEENT: Moist mucous membranes
Respiratory: Clear; No Wheezes, Rales or Rhonchi
Cardiac: S1/S2 and Regular Rhythm
GI: Soft, Non Tender, Non Distended and Normal Bowel Sounds
Musculoskeletal: No Edema
Neuro: AO x 3
BRBPR
- Monitor for any further bleeding and check CTA / bleeding scan if further BRBPR.
- Currently hemodynamically stable. Hgb stable.
- Follow for any changes in vitals, exam, H&H.
GI following
Obstruction series
PPI
Clears for now
Hypokalemia
Replete
GERD / PUD
- Continue PPI.
Benign Hypertension
- Stable. Continue current medications with holding parameters.
Hyperthyroidism
- Stable. Continue current PTU dosing.
Anxiety / Depression
- Stable. Continue mirtazapine.
DVT Prophylaxis: SCDs
Code Status: Full
Anticipated Discharge: Within 24 hours
Subjective/Interval History
-
Date of Service: January 05, 2025
denies pain
Objective Data
-
Labs:
Laboratory Results
01/05/25 01/05/25
01:54 08:53
WBC 5.4 5.3
Hgb 12.3 11.6 L
Hct 37.6 35.8 L
Plt Count 163 163
Sodium 138 137
Potassium 3.3 L 3.3 L
Chloride 98 102
Carbon Dioxide 31 H 30
BUN 37 H 26 H
Creatinine 1.2 H 1.0
Glucose 100 H 88
Calcium 9.4 8.6
Total Bilirubin 0.8
AST 38 H
ALT 21
Alkaline Phosphatase 126
Vital Signs:
Vital Signs
Temp Pulse Resp BP Pulse Ox
98.2 F 90 16 149/70 94
01/05/25 11:22 01/05/25 08:43 01/05/25 01:43 01/05/25 08:43 01/05/25 11:22
I&O
01/04/25 01/05/25 01/06/25
06:59 06:59 06:59
Output Total 650 / 650
Balance -650 / -650
[2025-01-05] MEDS: KCL 20 MEQ PO (13:28)
[2025-01-05] MEDS: COLACE 100 MG PO ×2 (14:18→20:28)
[2025-01-05] MEDS: MIRALAX 17 GRAMS PO (14:18)
--- NOTE | 2025-01-05 16:37 | PTCARENOTE ---
Pt assisted to the BR and passed some hard black stool w/ watery bloody stool. Dr Sheth came to bedside to assess, preformed rectal exam when back in bed and disimpacted pt for a moderate amount of blackish/brown stool. Pt transferred to 425.
[2025-01-05] MEDS: REMERON 7.5 MG PO (20:29)
[2025-01-06] VITALS (7 sets, daily range): BP systolic 114–169; BP diastolic 51–79; PULSE 59–77; BMI 16.0
[2025-01-06] MEDS: LIDOCAINE 4% PATCH 1 PATCH TOPICAL ×2 (00:32→21:48)
[2025-01-06] MEDS: TYLENOL 650 MG PO ×2 (00:32→04:47)
[2025-01-06] MEDS: LR 1000 IV (04:48)
[2025-01-06 06:33] LABS: % Basophils 0.8 % (0-2); % Eosinophils 3.4 % (0-6); % Immature Granulocytes 0.3 % (0-0.5); % Lymphocytes 14.9 % (20.5-51.1); % Neutrophils 71.6 % (42.2-75.2); Absolute Basophils 0.1 10^3/uL (0-0.2); Absolute Eosinophils 0.2 10^3/uL (0-0.7); Absolute Lymphocytes 0.9 10^3/uL (1.2-3.4); Absolute Monocytes 0.6 10^3/uL (0.1-0.6); Absolute Neutrophils 4.4 10^3/uL (1.4-6.5); Hematocrit 31.3 % (37.0-47.0); Hemoglobin 10.6 g/dL (12.0-16.0); Mean Corp Hgb Conc. 33.9 g/dL (33.0-37.0); Mean Corpuscular Hgb 32.9 pg (27.0-31.0); Mean Corpuscular Volume 97.2 fL (81.0-99.0); Mean Platelet Volume 10.2 fL (7.4-10.4); Nucleated Red Blood Cells % 0 %; Platelet Count 164 10^3/uL (130-400); Red Blood Cell Count 3.22 10^6/uL (4.20-5.40); Red Cell Dist. Width 13.8 % (11.5-14.5); White Blood Cell Count 6.1 10^3/uL (4.8-10.8)
--- NOTE | 2025-01-06 06:45 | PTCARENOTE ---
Pt. had one moderate soft loose BM following MOM enema last night ; some bright red blood present. No complaints abd pain/nausea, no further episodes. VSS; hgb 10.6 this AM.
[2025-01-06 07:19] LABS: ALT (SGPT) 14 U/L (0-35); AST (SGOT) 26 U/L (14-36); Alkaline Phosphatase 98 U/L (38-126); Blood Urea Nitrogen 19 mg/dl (7-17); Calcium 8.9 mg/dl (8.4-10.2); Carbon Dioxide 29 mmol/L (22-30); Chloride 102 mmol/L (98-107); Estimated Creatinine Clearance 29 ml/min; Glucose 84 mg/dl (70-99); Potassium 3.5 mmol/L (3.5-5.1); Sodium 135 mmol/L (135-145); Total Bilirubin 0.8 mg/dl (0.2-1.3); Total Protein 4.8 g/dl (6.3-8.2); eGFR > 60.00
[2025-01-06] MEDS: CARDIZEM CD 180 MG PO (09:16)
[2025-01-06] MEDS: PROPYLTHIOURACIL 50 MG PO ×2 (09:18→20:45)
[2025-01-06] MEDS: PROTONIX IV 40 MG IV ×2 (09:18→20:44)
[2025-01-06] MEDS: NSS (PRESERVATIVE FREE) 10 ML IV ×2 (09:18→20:43)
[2025-01-06] MEDS: PROPYLTHIOURACIL PO (09:20)
[2025-01-06] MEDS: DIOVAN 80 MG PO (09:20)
[2025-01-06] MEDS: COLACE 100 MG PO ×2 (09:21→20:43)
[2025-01-06] MEDS: MIRALAX 17 GRAMS PO (09:21)
--- NOTE | 2025-01-06 11:52 | W.PN.HOSP.TC ---
Today's Communication/Plan
-
Monitor vital signs see plan
GI following
Monitor for further bleeding
If no GI intervention needed then will likely advance diet
PPI
Assessment / Plan
Assessment / Plan
General: Other (84y F sleeping comfortably. Wakes easily. No acute distress)
HEENT: Moist mucous membranes
Respiratory: Clear; No Wheezes, Rales or Rhonchi
Cardiac: S1/S2 and Regular Rhythm
GI: Soft, Non Tender, Non Distended and Normal Bowel Sounds
Musculoskeletal: No Edema
Neuro: AO x 3
BRBPR
- Monitor for any further bleeding and check CTA / bleeding scan if further BRBPR.
- Currently hemodynamically stable. Hgb stable.
- Follow for any changes in vitals, exam, H&H.
GI following
Obstruction series with constipation. Status post enema. Also on laxatives
PPI
Clears for now, if no intervention by gastroenterology then advance diet
Hypokalemia
Replete
GERD / PUD
- Continue PPI.
Benign Hypertension
- Stable. Continue current medications with holding parameters.
Hyperthyroidism
- Stable. Continue current PTU dosing.
Anxiety / Depression
- Stable. Continue mirtazapine.
DVT Prophylaxis: SCDs
Code Status: Full
Anticipated Discharge: Within 24 hours
Subjective/Interval History
-
Date of Service: January 06, 2025
denies pain
Objective Data
-
Labs:
Laboratory Results
01/06/25
05:13
WBC 6.1
Hgb 10.6 L
Hct 31.3 L
Plt Count 164
Sodium 135
Potassium 3.5
Chloride 102
Carbon Dioxide 29
BUN 19 H
Creatinine 0.9
Glucose 84
Calcium 8.9
Total Bilirubin 0.8
AST 26
ALT 14
Alkaline Phosphatase 98
Vital Signs:
Vital Signs
Temp Pulse Resp BP Pulse Ox
98.1 F 70 14 126/54 97
01/06/25 11:45 01/06/25 11:45 01/06/25 11:45 01/06/25 11:45 01/06/25 11:45
I&O
01/05/25 01/06/25 01/07/25
06:59 06:59 06:59
Intake Total 1200 / 1200
Output Total 650 / 650
Balance -650 / -650 1200 / 1200
--- NOTE | 2025-01-06 12:20 | CM ---
Patient seen bedside, initial assessment completed. Patient resides independently in an apartment, elevator access. Patient denies DME in home, VN/SNF history. Patient confirms PCP Diane Brunson, pharmacy [facility] in [place], confirms
prescription coverage. Patient provided with RIDER form, discussed observation, refused to sign, placed in chart. CM will continue to follow for all discharge planning needs.
Plan; home no needs likely.
--- NOTE | 2025-01-06 13:04 | W.PN.GI.CBS2 ---
Addendum entered and electronically signed by Geoff Patel MD 01/06/25 17:25:
I saw and examined the patient.
The medical transcription radiology note was reviewed and I agree with the note.
Had a large BM after MOM. Stool brown as per nursing
plan
Advance to low residual diet
Avoid constipation. Daily bowel regimen-Metamucil/MiraLAX/Colace
No GI intervention at this point
Will sign off. Please call us back if any questions
Follow-up with GI as outpatient
Original Note:
Today's Communication / Plan
-
-Continue PPI BID
-Follow up hgb Q12 H
-
Assessment / Plan
-
Assessment
Ms Weeks is a 84 year old female who presented to the hospital following an episode of having painless rectal bleeding episode. The patient noticed her bleeding on her pad in the middle of the night when she woke up to got the bathroom. She denies a
similar apiode before and reports using a suppository 3 days ago to have a bowel movement. The patient has an extensive past medical history of GI problems including hx of diverticulitis complicated with perforation s/p laparotomy in 2016 with
Dylan`s pouch/ reversal colostomy in 2017, gastric ulcer secondary to NSAID use in 2021, GERD and Esophageal Candidiasis . Per chart review ( 07/18/24), the patient has hx gastric ulcers secondary to NSAID use treated at [facility] in 2021
with repeat EGD in August showing residual but healing ulcer. Her assumably following endoscopy was done in in [place] on 07/18/[address] Sunshine showing multiple plaques in the entire esophagus and normal duodenum and stomach. She had a CT
Virtual Colon Diagnostic on 09/05/24 was not remarkable. On today`s exam, patient seems clinically improved, denies abdominal pain, nausea , vomiting, melena/rectal bleeding. She had a brown colored large amount of stool this am. Her hgb level was
found slightly decreased to 10.6
Impression
Lower GI bleeding
Constipation
HX of diverticulitis complicated with perforation S/P laparotomy in 2017
Hx of Gastric Ulcer
Hypertension
Hyperthyroidism
CKD
Anxiety / Depression
Chronic Back pain
#GI bleeding likely lower GI bleeding possibly secondary to stercoral colitis vs diverticulosis
-Hx of constipation/hard small stool pieces on rectal exam at admission
-Abd X ray:moderate stool within colon
-No signs of active GI bleeding
-Continue Miralax
-Follow hgb Q12 H
-Clear Liquid diet can be advanced if patient can tolerate/ if no further signs of GI bleeding
-Continue PPI BID
GI team will follow up the patient.
Subjective
Subjective
Date of Service: January 06, 2025
Patient seems more comfortable and conversive this morning. She denies any hematemesis, nausea, vomiting. She had one bowel movement this morning which was brown and soft in large amount.
Objective
Data Reviewed
Laboratory Data:
Laboratory Results
01/06/25 05:13
01/06/25 05:13
Laboratory Results
Total Bilirubin 0.8 mg/dl (0.2-1.3) 01/06/25 05:13
AST 26 U/L (14-36) 01/06/25 05:13
ALT 14 U/L (0-35) 01/06/25 05:13
Alkaline Phosphatase 98 U/L (38-126) 01/06/25 05:13
Vital Signs and I&O:
Vital Signs
Temp Pulse Resp BP Pulse Ox
98.1 F 70 14 126/54 97
01/06/25 11:45 01/06/25 11:45 01/06/25 11:45 01/06/25 11:45 01/06/25 11:45
I&O
01/05/25 01/06/25 01/07/25
06:59 06:59 06:59
Intake Total 1200 / 1200
Output Total 650 / 650
Balance -650 / -650 1200 / 1200
Physical Exam
Physical Exam
HEENT: Anicteric and Moist mucous membranes
Cardiology: Normal Sinus Rhythm, S1 and S2
Pulmonary: Clear
GI: Soft, Non Distended and Non Tender
Extremities: No Edema
Neuro: Non Focal
[2025-01-06 21:37] LABS: Hematocrit 33.2 % (37.0-47.0); Hemoglobin 10.8 g/dL (12.0-16.0)
[2025-01-06] MEDS: REMERON 7.5 MG PO (21:50)
[2025-01-06] MEDS: RESTORIL 15 MG PO (22:04)
[2025-01-07] VITALS (9 sets, daily range): BP systolic 108–148; BP diastolic 46–74; PULSE 62–78; O2SAT 95
[2025-01-07 07:56] LABS: % Basophils 1.3 % (0-2); % Immature Granulocytes 0.4 % (0-0.5); % Lymphocytes 20.9 % (20.5-51.1); % Neutrophils 61.4 % (42.2-75.2); Absolute Basophils 0.1 10^3/uL (0-0.2); Absolute Eosinophils 0.3 10^3/uL (0-0.7); Absolute Monocytes 0.5 10^3/uL (0.1-0.6); Absolute Neutrophils 2.9 10^3/uL (1.4-6.5); Hematocrit 34.3 % (37.0-47.0); Hemoglobin 11.4 g/dL (12.0-16.0); Mean Corp Hgb Conc. 33.2 g/dL (33.0-37.0); Mean Corpuscular Hgb 32.8 pg (27.0-31.0); Mean Corpuscular Volume 98.6 fL (81.0-99.0); Mean Platelet Volume 9.8 fL (7.4-10.4); Nucleated Red Blood Cells % 0 %; Platelet Count 162 10^3/uL (130-400); Red Blood Cell Count 3.48 10^6/uL (4.20-5.40); Red Cell Dist. Width 13.8 % (11.5-14.5); White Blood Cell Count 4.7 10^3/uL (4.8-10.8)
[2025-01-07] MEDS: MIRALAX 17 GRAMS PO (08:09)
[2025-01-07] MEDS: DIOVAN 80 MG PO (08:10)
[2025-01-07] MEDS: CARDIZEM CD 180 MG PO (08:10)
[2025-01-07] MEDS: PROPYLTHIOURACIL 50 MG PO ×2 (08:11→20:46)
[2025-01-07] MEDS: COLACE 100 MG PO ×2 (08:11→20:46)
[2025-01-07] MEDS: PROTONIX IV 40 MG IV ×2 (08:12→20:46)
[2025-01-07] MEDS: NSS (PRESERVATIVE FREE) 10 ML IV ×2 (08:12→20:46)
[2025-01-07 08:24] LABS: ALT (SGPT) 15 U/L (0-35); AST (SGOT) 29 U/L (14-36); Albumin 2.9 g/dl (3.5-5.0); Alkaline Phosphatase 94 U/L (38-126); Blood Urea Nitrogen 16 mg/dl (7-17); Calcium 8.8 mg/dl (8.4-10.2); Carbon Dioxide 32 mmol/L (22-30); Chloride 103 mmol/L (98-107); Estimated Creatinine Clearance 24 ml/min; Glucose 85 mg/dl (70-99); Potassium 3.7 mmol/L (3.5-5.1); Sodium 137 mmol/L (135-145); Total Bilirubin 0.6 mg/dl (0.2-1.3); Total Protein 4.8 g/dl (6.3-8.2); eGFR 49.55
--- NOTE | 2025-01-07 12:48 | W.PN.HOSP.TC ---
Today's Communication/Plan
-
Monitor vital signs see plan
On laxatives
Monitor frequency of loose stool, if stable then likely can be discharged home today
Assessment / Plan
Assessment / Plan
General: Other (84y F sleeping comfortably. Wakes easily. No acute distress)
HEENT: Moist mucous membranes
Respiratory: Clear; No Wheezes, Rales or Rhonchi
Cardiac: S1/S2 and Regular Rhythm
GI: Soft, Non Tender, Non Distended and Normal Bowel Sounds
Musculoskeletal: No Edema
Neuro: AO x 3
BRBPR
- Monitor for any further bleeding and check CTA / bleeding scan if further BRBPR.
- Currently hemodynamically stable. Hgb stable.
- Follow for any changes in vitals, exam, H&H.
GI following
Obstruction series with constipation. Status post enema. Also on laxatives
PPI
Tolerating low res
GI follow-up outpatient
Complaining of loose stool this morning, will monitor frequency of loose stool until later this afternoon and if stable then will discharge
Hypokalemia
Replete
GERD / PUD
- Continue PPI.
Benign Hypertension
- Stable. Continue current medications with holding parameters.
Hyperthyroidism
- Stable. Continue current PTU dosing.
Anxiety / Depression
- Stable. Continue mirtazapine.
DVT Prophylaxis: SCDs
Code Status: Full
Anticipated Discharge: Today
Subjective/Interval History
-
Date of Service: January 07, 2025
Complaining of loose stool this morning
Objective Data
-
Labs:
Laboratory Results
01/07/25
06:45
WBC 4.7 L
Hgb 11.4 L
Hct 34.3 L
Plt Count 162
Sodium 137
Potassium 3.7
Chloride 103
Carbon Dioxide 32 H
BUN 16
Creatinine 1.1 H
Glucose 85
Calcium 8.8
Total Bilirubin 0.6
AST 29
ALT 15
Alkaline Phosphatase 94
Vital Signs:
Vital Signs
Temp Pulse Resp BP Pulse Ox
97.9 F 67 18 110/50 98
01/07/25 11:00 01/07/25 11:00 01/07/25 11:00 01/07/25 11:00 01/07/25 11:00
I&O
01/06/25 01/07/25 01/08/25
06:59 06:59 06:59
Intake Total 1200 / 1200 1200 / 1200
Balance 1200 / 1200 1200 / 1200
[2025-01-07] MEDS: LIDOCAINE 4% PATCH 1 PATCH TOPICAL (20:45)
[2025-01-07] MEDS: REMERON 7.5 MG PO (20:46)
[2025-01-07 21:47] LABS: Glucose - Point of Care 136 mg/dl (70-99)
[2025-01-08 03:08] VITALS: BP 145/58
[2025-01-08 07:00] VITALS: BP 142/74
[2025-01-08 07:56] LABS: ALT (SGPT) 19 U/L (0-35); AST (SGOT) 35 U/L (14-36); Alkaline Phosphatase 107 U/L (38-126); Blood Urea Nitrogen 18 mg/dl (7-17); Calcium 9.7 mg/dl (8.4-10.2); Carbon Dioxide 37 mmol/L (22-30); Chloride 99 mmol/L (98-107); Estimated Creatinine Clearance 26 ml/min; Glucose 91 mg/dl (70-99); Potassium 4.2 mmol/L (3.5-5.1); Sodium 138 mmol/L (135-145); Total Bilirubin 0.7 mg/dl (0.2-1.3); Total Protein 6.2 g/dl (6.3-8.2); eGFR 55.55
[2025-01-08 07:59] LABS: % Basophils 0.9 % (0-2); % Eosinophils 4.5 % (0-6); % Immature Granulocytes 0.4 % (0-0.5); % Lymphocytes 19.9 % (20.5-51.1); % Monocytes 8.4 % (1.7-9.3); % Neutrophils 65.9 % (42.2-75.2); Absolute Basophils 0.1 10^3/uL (0-0.2); Absolute Eosinophils 0.2 10^3/uL (0-0.7); Absolute Lymphocytes 1.1 10^3/uL (1.2-3.4); Absolute Monocytes 0.5 10^3/uL (0.1-0.6); Absolute Neutrophils 3.5 10^3/uL (1.4-6.5); Hematocrit 39.1 % (37.0-47.0); Hemoglobin 12.6 g/dL (12.0-16.0); Mean Corp Hgb Conc. 32.2 g/dL (33.0-37.0); Mean Corpuscular Hgb 32.1 pg (27.0-31.0); Mean Corpuscular Volume 99.5 fL (81.0-99.0); Mean Platelet Volume 10.2 fL (7.4-10.4); Nucleated Red Blood Cells % 0 %; Platelet Count 202 10^3/uL (130-400); Red Blood Cell Count 3.93 10^6/uL (4.20-5.40); Red Cell Dist. Width 13.8 % (11.5-14.5); White Blood Cell Count 5.3 10^3/uL (4.8-10.8)
[2025-01-08 09:05] VITALS: BP 142/74
[2025-01-08] MEDS: CARDIZEM CD 180 MG PO (09:52)
[2025-01-08] MEDS: PROPYLTHIOURACIL 50 MG PO (09:52)
[2025-01-08] MEDS: MIRALAX 17 GRAMS PO (09:53)
[2025-01-08] MEDS: DIOVAN 80 MG PO (09:53)
[2025-01-08] MEDS: BenGay-Like 1 APPLIC TOPICAL (09:55)
[2025-01-08] MEDS: COLACE 100 MG PO (09:56)
[2025-01-08] MEDS: PROTONIX IV 40 MG IV (09:57)
[2025-01-08] MEDS: NSS (PRESERVATIVE FREE) 10 ML IV (09:57)
--- NOTE | 2025-01-08 10:52 | W.PN.HOSP.TC ---
Today's Communication/Plan
-
Monitor vital signs see plan
Now feeling better
Discharge today
Time of discharge 37 minutes
Assessment / Plan
Assessment / Plan
General: Other (84y F sleeping comfortably. Wakes easily. No acute distress)
HEENT: Moist mucous membranes
Respiratory: Clear; No Wheezes, Rales or Rhonchi
Cardiac: S1/S2 and Regular Rhythm
GI: Soft, Non Tender, Non Distended and Normal Bowel Sounds
Musculoskeletal: No Edema
Neuro: AO x 3
BRBPR
- Monitor for any further bleeding and check CTA / bleeding scan if further BRBPR.
- Currently hemodynamically stable. Hgb stable.
No further bleed, suspect was secondary to constipation
GI following
Obstruction series with constipation. Status post enema. Also on laxatives
PPI
Tolerating low res
GI follow-up outpatient
Reports feeling better today. Advised patient to have daily bowel movements.
Hypokalemia
Replete
GERD / PUD
- Continue PPI.
Benign Hypertension
- Stable. Continue current medications with holding parameters.
Hyperthyroidism
- Stable. Continue current PTU dosing.
Anxiety / Depression
- Stable. Continue mirtazapine.
DVT Prophylaxis: SCDs
Code Status: Full
Anticipated Discharge: Today
Subjective/Interval History
-
Date of Service: January 08, 2025
Denies abdominal pain
Objective Data
-
Labs:
Laboratory Results
01/08/25
06:57
WBC 5.3
Hgb 12.6
Hct 39.1
Plt Count 202 D
Sodium 138
Potassium 4.2
Chloride 99
Carbon Dioxide 37 H
BUN 18 H
Creatinine 1.0
Glucose 91
Calcium 9.7
Total Bilirubin 0.7
AST 35
ALT 19
Alkaline Phosphatase 107
Vital Signs:
Vital Signs
Temp Pulse Resp BP Pulse Ox
98.1 F 72 18 142/74 98
01/08/25 03:08 01/08/25 07:00 01/08/25 07:00 01/08/25 07:00 01/08/25 07:00
I&O
01/07/25 01/08/25 01/09/25
06:59 06:59 06:59
Intake Total 1200 / 1200 720 / 720
Balance 1200 / 1200 720 / 720
--- NOTE | 2025-01-08 10:56 | W.DCSUMMARY ---
Discharge Summary
Discharge Data
Date of Admission: 01/06/25
Date of Discharge: 01/08/25
-
Pending Results: No
Hospital Course
84-year-old female with past medical history of GERD/PUD, hypertension, hypothyroidism, anxiety, depression came to the hospital with bright red blood per rectum after she gave herself suppository. Patient was seen by gastroenterology throughout
hospitalization. Patient symptoms were likely thought were secondary to severe constipation. Patient was then given laxative and enema which improved her symptoms. Her hemoglobin continue to be stable throughout hospitalization. Patient did not
had any further episodes of bleeding prior to discharge. Once her symptoms continue to improve, she was then discharged home with instructions to follow-up with all her physicians outpatient.
Discharge Plan
-
Patient Disposition: Home with Home Care
Discharge Diagnosis/Procedures: Bright red blood per rectum suspect likely secondary to constipation with possible stercoral colitis
Hypokalemia
Diet: As tolerated
Activity: As tolerated
Driving Restrictions: As prior to admission
Bathing Restrictions: None
Referrals:
UNKNOWN - PT DOES,NOT KNOW [Family Provider] - in less than 1 week
Prescriptions:
New
Analgesic [place] (manuja-menth) 15-10 % Cream
1 applic topical QID Qty: 85 0RF
docusate sodium 100 mg Capsule
100 mg PO BID Qty: 0 0RF
polyethylene glycol 3350 17 gram Powder In Packet
17 g PO DAILY Qty: 0 0RF
lidocaine 4 % Adhesive Patch,Medicated
1 patch topical HS Qty: 30 0RF
Continued
diltiazem HCl 180 mg Capsule,Extended Release 24hr
180 mg PO DAILY
propylthiouracil 50 mg Tablet
50 mg PO BID
valsartan 80 mg Tablet
80 mg PO DAILY
temazepam 15 mg Capsule
15 mg PO HS PRN (Reason: sleep)
pantoprazole 40 mg Tablet,Delayed Release (Dr/Ec)
40 mg PO BID
mirtazapine 7.5 mg Tablet
7.5 mg PO HS
PreserVision AREDS-2 250-90-40-1 mg Tablet,Chewable
1 tab PO QAM AND QPM
Discharge Orders:
Discharge Patient (As Directed); Ordered 01/08/25
Ordered By: Archie Rodriguez
Discharge Date and Time
Discharge Date/Time: 01/08/25 12:56
Print Language: HUNGARIAN
[2025-01-08 11:00] VITALS: BP 145/72; BP 147/76; BP 160/70; PULSE 64; PULSE 72; PULSE 78
== END 2025-01-08 12:56 | disposition home or self-care (01) | DRG 392 ==
LOC: 4 WEST ACU 13:30
PROVIDERS: ADMITTING PHYSICIAN Hospitalist; ATTENDING PHYSICIAN Internal Medicine; EMERGENCY PHYSICIAN Emergency Medicine; OTHER PHYSICIAN Specialist
DX: K59.09 Other constipation (principal); K62.5 Hemorrhage of anus and rectum; B37.81 Candidal esophagitis; E05.90 Thyrotoxicosis, unspecified without thyrotoxic crisis or storm; K21.9 Gastro-esophageal reflux disease without esophagitis; F41.9 Anxiety disorder, unspecified; F32.A Depression, unspecified; E87.6 Hypokalemia; K52.89 Other specified noninfective gastroenteritis and colitis; G89.29 Other chronic pain; I12.9 Hypertensive chronic kidney disease with stage 1 through stage 4 chronic kidney disease, or unspecified chronic kidney disease; N18.9 Chronic kidney disease, unspecified; Z87.11 Personal history of peptic ulcer disease; Z79.899 Other long term (current) drug therapy; Z90.11 Acquired absence of right breast and nipple; Z85.3 Personal history of malignant neoplasm of breast; Z88.1 Allergy status to other antibiotic agents
CPT/HCPCS: 74018; 80048; 80053; 82962; 83605; 85014; 85018; 85025; 85027; 86850; 86900; 86901; 93005; 96361; 96374; 97162; 97166; 99285

== ENCOUNTER 2025-04-13 09:26 | Emergency (ER) | payer OTHER, SELFPAY ==
[2025-04-13 09:31] VITALS: BP 171/70
[2025-04-13 09:32] VITALS: BP 162/63
[2025-04-13 09:34] VITALS: BP 162/63
[2025-04-13 09:45] VITALS: BMI 14.4
[2025-04-13 10:00] VITALS: BP 166/72
[2025-04-13 10:04] LABS: % Eosinophils 2.5 % (0-6); % Immature Granulocytes 0.2 % (0-0.5); % Lymphocytes 23.3 % (20.5-51.1); Absolute Eosinophils 0.1 10^3/uL (0-0.7); Absolute Monocytes 0.5 10^3/uL (0.1-0.6); Absolute Neutrophils 2.5 10^3/uL (1.4-6.5); Hematocrit 37.8 % (37.0-47.0); Hemoglobin 12.8 g/dL (12.0-16.0); Mean Corp Hgb Conc. 33.9 g/dL (33.0-37.0); Mean Corpuscular Volume 97.4 fL (81.0-99.0); Mean Platelet Volume 10.3 fL (7.4-10.4); Nucleated Red Blood Cells % 0 %; Platelet Count 176 10^3/uL (130-400); Red Blood Cell Count 3.88 10^6/uL (4.20-5.40); White Blood Cell Count 4.1 10^3/uL (4.8-10.8)
[2025-04-13 10:21] LABS: Blood Urea Nitrogen 23 mg/dl (7-17); Calcium 9.3 mg/dl (8.4-10.2); Carbon Dioxide 30 mmol/L (22-30); Chloride 103 mmol/L (98-107); Estimated Creatinine Clearance 27 ml/min; Glucose 86 mg/dl (70-99); Sodium 138 mmol/L (135-145); eGFR > 60.00
[2025-04-13 11:00] VITALS: BP 148/56
--- NOTE | 2025-04-13 11:54 | ED.GENMED ---
History of Present Illness
<MAGDALENA Gonzáles - Last Filed: 04/13/25 14:27>
General
Chief Complaint: Weight Changes
Source: patient
Time Seen by Provider: 04/13/25 10:17
History of Present Illness
History of Present Illness:
This is an 83 y/o F with a PMH of HTN, hyperthyroidism, breast CA s/p mastectomy who presents for weight loss x 2 years. This morning she was concerned with how frail she looked and as a result came to ED. She was previously here in 11/01 for the
same complaint. At that time, she weighed 51.2 kg per last note. Today she weighs 36.8 kg. She reports eating and drinking well. She reports following a nutrition plan that was given to her by PCP and enterprise account manager. Yet despite adequate intake, she
remains losing weight unintentionally. She states 'look at me, i'm a walking skeleton'. She reports associated fatigue that is chronic. She denies FLORENTINO/LH, CP, palpitations, shortness of breath, abdominal pain, nausea, vomiting, constipation,
diarrhea, syncope.
She denies a PMH of CA, infectious diseases, hematologic disorders. She reportedly had a cholecystectomy several years ago. She previously drank wine daily x 1 year and reportedly stopped in 2019. She does not smoke or use drugs.
Past History
<MAGDALENA Gonzáles - Last Filed: 04/13/25 14:27>
Past History
ED Past Medical History: Cancer, Hyperthyroidism, Psychiatric and Other (Bleeding gastric ulcer)
ED Past Surgical History: Other (Sigmoid resection)
Social History
Tobacco: Non-smoker
Alcohol: Occasional
Drug: None
Personal: Single
Living: with family
Employment: Retired
Family History
Family History: CAD
Phy Exam
<MAGDALENA Gonzáles - Last Filed: 04/13/25 14:27>
General Physical Exam
General Presentation: no apparent distress
General age: appears stated age
General Skin: warm and dry
General Habitus: elderly and frail
Cardiovascular Exam
Cardiovascular Exam: regular rate/rhythm
Pulmonary Exam
Pulmonary Exam: lungs clear and no respiratory distress
Gastrointestinal Exam
Gastrointestinal Exam: normal bowel sounds, non tender and no pulsatile mass
Neurological Exam
Neurological Exam: alert, oriented x3, CN II-XII intact and other (Strength and sensation 4/5 equal in all extremities)
Scores
<MAGDALENA Gonzáles - Last Filed: 04/13/25 14:27>
Heart Failure Risk
Heart Failure Risk Score: Not Applicable
Course
<Renny Monzon STCIARA - Last Filed: 04/13/25 14:27>
Orders/Labs/Results
Orders:
Orders
04/13/25 09:48
Basic Metabolic Panel Urgent
Complete Blood Count/With Diff Urgent
Abnormal Lab Results
04/13/25
09:48
WBC 4.1 L 10^3/uL
(4.8-10.8)
RBC 3.88 L 10^6/uL
(4.20-5.40)
MCH 33.0 H pg
(27.0-31.0)
RDW 16.0 H %
(11.5-14.5)
Absolute Lymphs (auto) 1.0 L 10^3/uL
(1.2-3.4)
Monocytes % 12.0 H %
(1.7-9.3)
BUN 23 H mg/dl
(7-17)
04/13/25 09:48
04/13/25 09:48
Vital Signs
Initial and Last Documented VS:
Initial Vital Signs
BP
171/70
04/13/25 09:31
Last Documented Vital Signs
Temp Pulse Resp BP Pulse Ox
98.7 F 52 20 164/64 96
04/13/25 09:32 04/13/25 12:00 04/13/25 12:00 04/13/25 12:00 04/13/25 09:45
<Ralf H. DO Henrry - Last Filed: 04/18/25 05:21>
Orders/Labs/Results
Orders:
Orders
04/13/25 09:48
Basic Metabolic Panel Urgent
Complete Blood Count/With Diff Urgent
Abnormal Lab Results
04/13/25
09:48
WBC 4.1 L 10^3/uL
(4.8-10.8)
RBC 3.88 L 10^6/uL
(4.20-5.40)
MCH 33.0 H pg
(27.0-31.0)
RDW 16.0 H %
(11.5-14.5)
Absolute Lymphs (auto) 1.0 L 10^3/uL
(1.2-3.4)
Monocytes % 12.0 H %
(1.7-9.3)
BUN 23 H mg/dl
(7-17)
04/13/25 09:48
04/13/25 09:48
Vital Signs
Initial and Last Documented VS:
Initial Vital Signs
BP
171/70
04/13/25 09:31
Last Documented Vital Signs
Temp Pulse Resp BP Pulse Ox
98.7 F 52 20 164/64 96
04/13/25 09:32 04/13/25 12:00 04/13/25 12:00 04/13/25 12:00 04/13/25 09:45
<MAGDALENA Gonzáles - Last Filed: 04/13/25 14:27>
MDM/Problems Addressed
MDM/Problems Addressed:
This is an 83 y/o F with a PMH of HTN, hyperthyroidism on PTU, breast CA s/p mastectomy who presents for weight loss x 2 years. She was here in October with same concerns. At that time she weighed 51.2 kg, today she weighs 36.8 kg. She was here in
january for acute GI bleed. She is hemodynamically stable. Physical exam is benign. There is no evidence of electrolyte abnormality. She is suggesting colonoscopy which would be an outpatient decision between her and her primary care provider.
<MAGDALENA Gonzáles - Last Filed: 04/13/25 14:27>
*Critical Care Note
Total Time (30-74mins, 75-104mins- exclusive of procedures): Not Applicable
ED Attending Note
<MAGDALENA Gonzáles - Last Filed: 04/13/25 14:27>
-
Portions of this chart may have been created with voice recognition software.� Occasional wrong word or��sound alike� substitutions may have occurred due to the inherent limitations of voice recognition software.
<Ralf Sales DO - Last Filed: 04/18/25 05:21>
ED Attending Note
Patient seen and examined by attending physician: Yes
I performed the substantive portion of visit, reviewed & personally made and approve the management plan that is documented in note by myself or ZORA.: Yes
ED Attending Note:
I agree with Mila's note.
Patient presents complaining that she has low weight. She is tolerating oral intake but feels like she is not gaining the weight she should based upon what she is eating. She denies any acute complaints such as chest pain, abdominal pain, nausea
or vomiting.
General: Awake, Alert, Oriented X3. Quite thin, no distress
Vitals: unremarkable
Head: Atraumatic
Eyes: Pupils equal, EOMI
Throat: Airway intact, no exudates
Neck: Trachea midline
Lungs: Clear and equal b/l
Heart: Regular rate, no murmurs
Abd: Soft, Nontender, No pulsatile mass
Neuro: Nonfocal
Skin: Warm, dry, no rash
Extremities: pulses equal b/l, no edema
Patient presents with concern that she has a low weight. Labs are reassuring. Patient has no evidence of an unstable process. She can follow-up as an outpatient
Discharge Plan
Departure
Patient Disposition: Home (Routine Discharge)
Date of Disposition: 04/13/25
Time of Disposition: 12:46
Patient with high blood pressure during this ER visit?: Yes
Condition: Good
Discharge Problem:
Low weight
Instructions: Malnutrition - Discharge instructions
Prescriptions:
No Action
diltiazem HCl 180 mg Capsule,Extended Release 24hr
180 mg PO DAILY
propylthiouracil 50 mg Tablet
50 mg PO BID
valsartan 80 mg Tablet
80 mg PO DAILY
temazepam 15 mg Capsule
15 mg PO HS PRN (Reason: sleep)
pantoprazole 40 mg Tablet,Delayed Release (Dr/Ec)
40 mg PO BID
mirtazapine 7.5 mg Tablet
7.5 mg PO HS
PreserVision AREDS-2 250-90-40-1 mg Tablet,Chewable
1 tab PO QAM AND QPM
Analgesic [place] (m.salic-menth) 15-10 % Cream
1 applic topical QID Qty: 85 0RF
docusate sodium 100 mg Capsule
100 mg PO BID Qty: 0 0RF
polyethylene glycol 3350 17 gram Powder In Packet
17 g PO DAILY Qty: 0 0RF
lidocaine 4 % Adhesive Patch,Medicated
1 patch topical HS Qty: 30 0RF
Referrals:
Chester Castro MD [Active, Family Practice]
UNKNOWN - PT DOES,NOT KNOW [Family Provider]
Activity Restrictions/Additional Instructions:
It is important you follow up with your primary care doctor.
Interventions
Interventions:
*Risk Screen - Suicide Last Done: 04/13/25 09:32
*General Assessment Last Done: 04/13/25 09:32
*Neglect/Abuse Screening Last Done: 04/13/25 09:32
*ED COVID-19 Vaccine History Last Done: 04/13/25 09:32
*Nursing Disposition Last Done: 04/13/25 14:15
Discharge Date and Time
Discharge Date/Time: 04/13/25 14:16
Print Language: SYRIAC
[2025-04-13 12:00] VITALS: BP 164/64
== END 2025-04-13 14:16 | disposition home or self-care (01) ==
LOC: EMR 09:26
PROVIDERS: EMERGENCY PHYSICIAN Emergency Medicine
DX: R63.6 Underweight (principal); I10 Essential (primary) hypertension; Z68.1 Body mass index [BMI] 19.9 or less, adult; E05.90 Thyrotoxicosis, unspecified without thyrotoxic crisis or storm
CPT/HCPCS: 99283; 80048; 85025

== ENCOUNTER → 2025-05-24 12:47 | Outpatient (REF) | payer OTHER, SELFPAY | LOC: WDC 12:47 | PROVIDERS: ATTENDING PHYSICIAN Family Medicine | DX: Z85.3 Personal history of malignant neoplasm of breast (principal); Z90.11 Acquired absence of right breast and nipple | CPT/HCPCS: 77061; 77065 ==

== ENCOUNTER → 2025-06-05 13:40 | Outpatient (REF) | payer OTHER, SELFPAY | LOC: RAD 13:40 | PROVIDERS: ATTENDING PHYSICIAN Family Medicine | DX: M54.50 Low back pain, unspecified (principal) | CPT/HCPCS: 72110 ==

== ENCOUNTER → 2025-07-19 13:38 | Outpatient (REF) | payer OTHER, SELFPAY | LOC: HWRAD 13:38 | PROVIDERS: ATTENDING PHYSICIAN Family Medicine | DX: M51.360 Other intervertebral disc degeneration, lumbar region with discogenic back pain only (principal); M41.85 Other forms of scoliosis, thoracolumbar region | CPT/HCPCS: 72128; 72131 ==

== ENCOUNTER → 2025-08-08 14:45 | Outpatient (REF) | payer OTHER, SELFPAY | LOC: HWRAD 14:45 | PROVIDERS: ATTENDING PHYSICIAN Internal Medicine Endocrinology, Diabetes & Metabolism; FAMILY PHYSICIAN Family Medicine | DX: E05.90 Thyrotoxicosis, unspecified without thyrotoxic crisis or storm (principal); E04.9 Nontoxic goiter, unspecified | CPT/HCPCS: 76536 ==

== ENCOUNTER 2025-08-13 18:45 | Inpatient (IN) | payer OTHER, SELFPAY ==
[2025-08-13] VITALS (7 sets, daily range): BP systolic 123–176; BP diastolic 60–81; BMI 15.1; BMI 13.4
--- NOTE | 2025-08-13 12:01 | ED.GENMED ---
History of Present Illness
<JAYCEE Terrell - Last Filed: 08/13/25 17:11>
General
Chief Complaint: Abdominal Symptoms
Source: patient
Exam Limitations: none
Time Seen by Provider: 08/13/25 11:39
Nursing documentation reviewed up to this point in time: agreed with
History of Present Illness
History of Present Illness:
Patient is a 85-year-old female with past medical history of GERD hypertension hypothyroidism anxiety depression, constipation, open sigmoid resection presents to the ER with complaints of feeling weak over the past several days. Patient was
constipated and has been using glycerin suppositories now having diarrhea. Because of abdominal symptoms she has not been eating over the past several days. She does live at home. She is a vague historian. She denies any fever chills
Past History
<JAYCEE Terrell - Last Filed: 08/13/25 17:11>
Past History
ED Past Medical History: Cancer, Hyperthyroidism, Psychiatric and Other (Bleeding gastric ulcer)
ED Past Surgical History: Other (Sigmoid resection)
Social History
Tobacco: Non-smoker
Alcohol: Occasional
Drug: None
Personal: Single
Living: with family
Employment: Retired
Family History
Family History: CAD
Phy Exam
<JAYCEE Terrell - Last Filed: 08/13/25 17:11>
General Physical Exam
General Presentation: no apparent distress
General age: appears stated age
General Skin: warm and dry
General Habitus: normal
General Mental: alert
General Hydration: appears well hydrated
Gastrointestinal Exam
Gastrointestinal Exam: normal bowel sounds, soft and other (Tender throughout)
Neurological Exam
Neurological Exam: alert and oriented x3
Musculoskeletal Exam
Musculoskeletal Exam: full ROM
Skin Exam
Skin Exam: normal color and warm/dry
Psychiatric Exam
Psychiatric Exam: normal mood/affect
Course
<JAYCEE Terrell - Last Filed: 08/13/25 17:11>
Orders/Labs/Results
Orders:
Orders
08/13/25 11:18
IV Insert/Care/Rem.- Treatment PRN
08/13/25 11:39
Complete Blood Count/With Diff Urgent
Manual Differential Urgent
Urinalysis Reflex To Culture Urgent
Date Specimen was Collected: 08/13/25
Time Specimen was Collected: 11:18
08/13/25 12:00
0.9% Sodium Chloride 500 ml [Nss] 500 ml IV BOLUS
08/13/25 12:03
Comprehensive Metabolic Panel Urgent
Lipase Urgent
08/13/25 13:11
CT Abd/pel W Iv And Oral Contr Urgent
Comment:
Reason For Exam: abd pain
Iohexol [Omnipaque] See Protocol PO NOW STA
08/13/25 17:01
Ampicillin/Sulbactam 3 G [Unasyn] 3 gm 0.9% Sodium Chloride 100 ml [Nss] 100 ml IV NOW
Abnormal Lab Results
08/13/25 08/13/25
11:39 12:03
WBC 14.3 H 10^3/uL
(4.8-10.8)
RBC 3.85 L 10^6/uL
(4.20-5.40)
MCH 34.3 H pg
(27.0-31.0)
RDW 15.4 H %
(11.5-14.5)
Abs Neuts (Manual) 12.0 H 10^3/uL
(1.4-6.5)
Band Neutrophils 17 H %
(0-3)
Lymphocytes (Manual) 4 L %
(20-51)
Monocytes (Manual) 11 H %
(2-9)
Potassium 3.2 L mmol/L
(3.5-5.1)
BUN 41 H mg/dl
(7-17)
Creatinine 1.1 H mg/dL
(0.6-1.0)
Glucose 112 H mg/dl
(70-99)
Alkaline Phosphatase 226 H U/L
(38-126)
Total Protein 6.2 L g/dl
(6.3-8.2)
08/13/25 11:39
08/13/25 12:03
Vital Signs
Initial and Last Documented VS:
Initial Vital Signs
Temp
98.0 F
08/13/25 11:19
Last Documented Vital Signs
Temp Pulse Resp BP Pulse Ox
98.0 F 87 22 158/77 96
08/13/25 11:19 08/13/25 14:15 08/13/25 13:45 08/13/25 14:00 08/13/25 17:10
Learning Manager consulted with Physician
Learning Manager consulted with physician?: Yes
Name of Physician Consulted: nitish
<Rory Garcia MD - Last Filed: 08/13/25 17:20>
Orders/Labs/Results
Orders:
Orders
08/13/25 11:18
IV Insert/Care/Rem.- Treatment PRN
08/13/25 11:39
Complete Blood Count/With Diff Urgent
Manual Differential Urgent
Urinalysis Reflex To Culture Urgent
Date Specimen was Collected: 08/13/25
Time Specimen was Collected: 11:18
08/13/25 12:00
0.9% Sodium Chloride 500 ml [Nss] 500 ml IV BOLUS
08/13/25 12:03
Comprehensive Metabolic Panel Urgent
Lipase Urgent
08/13/25 13:11
CT Abd/pel W Iv And Oral Contr Urgent
Comment:
Reason For Exam: abd pain
Iohexol [Omnipaque] See Protocol PO NOW STA
08/13/25 17:01
Ampicillin/Sulbactam 3 G [Unasyn] 3 gm 0.9% Sodium Chloride 100 ml [Nss] 100 ml IV NOW
Abnormal Lab Results
08/13/25 08/13/25
11:39 12:03
WBC 14.3 H 10^3/uL
(4.8-10.8)
RBC 3.85 L 10^6/uL
(4.20-5.40)
MCH 34.3 H pg
(27.0-31.0)
RDW 15.4 H %
(11.5-14.5)
Abs Neuts (Manual) 12.0 H 10^3/uL
(1.4-6.5)
Band Neutrophils 17 H %
(0-3)
Lymphocytes (Manual) 4 L %
(20-51)
Monocytes (Manual) 11 H %
(2-9)
Potassium 3.2 L mmol/L
(3.5-5.1)
BUN 41 H mg/dl
(7-17)
Creatinine 1.1 H mg/dL
(0.6-1.0)
Glucose 112 H mg/dl
(70-99)
Alkaline Phosphatase 226 H U/L
(38-126)
Total Protein 6.2 L g/dl
(6.3-8.2)
08/13/25 11:39
08/13/25 12:03
Vital Signs
Initial and Last Documented VS:
Initial Vital Signs
Temp
98.0 F
08/13/25 11:19
Last Documented Vital Signs
Temp Pulse Resp BP Pulse Ox
98.0 F 87 22 158/77 96
08/13/25 11:19 08/13/25 14:15 08/13/25 13:45 08/13/25 14:00 08/13/25 17:10
<JAYCEE Terrell - Last Filed: 08/13/25 17:11>
MDM/Problems Addressed
Differential Diagnosis Includes:
Not limited constipation bowel obstruction impaction
MDM/Problems Addressed:
Patient with constipation recently and now with diarrhea. CAT scan shows stercoral colitis consistent with fecal impaction. Patient also with moderate colitis throughout the descending colon. wbc is 14,000. I did manually disimpacted patient and
received a lot of stool and return. Stool is brown. With sterile colitis and elevated white count we will admit. Case discussed admitting physician will order Unasyn. Patient will likely need continued enemas.
<JAYCEE Terrell - Last Filed: 08/13/25 17:11>
*Radiology
Radiology exam reviewed: radiology read reviewed
*Pulse Oximetry
SaO2: 96
Oxygen Mode of Delivery: Room air
Patient hypoxic: no
*Critical Care Note
Total Time (30-74mins, 75-104mins- exclusive of procedures): Not Applicable
ED Attending Note
<JAYCEE Terrell - Last Filed: 08/13/25 17:11>
-
Portions of this chart may have been created with voice recognition software.� Occasional wrong word or��sound alike� substitutions may have occurred due to the inherent limitations of voice recognition software.
<Rory Garcia MD - Last Filed: 08/13/25 17:20>
ED Attending Note
Patient seen and examined by attending physician: Yes
I performed the substantive portion of visit, reviewed & personally made and approve the management plan that is documented in note by myself or ZORA.: Yes
ED Attending Note:
Patient presents with constipation general diarrhea and weakness. Progressive over days. No response to laxatives at home.
On exam patient is generally weak. Elderly and frail. Stable vital signs however nontoxic-appearing no respiratory distress. Regular rate and rhythm. Abdomen nondistended soft mild diffuse lower abdominal tenderness. No rebound or guarding no
mass or hernia. Warm and dry. Perfusing well. Grossly nonfocal.
Labs show leukocytosis. Dehydration. Mild hypokalemia CT scan with stercoral colitis. Patient will be admitted for fluids antibiotics and definitive management
Discharge Plan
Departure
Patient Disposition: Admit
Date of Disposition: 08/13/25
Time of Disposition: 17:04
Admit to: Med/Surg
Admit to doctor: hospitalist
Presentation/result/management discussed w/ accepting MD/DO: Hospitalist
Patient with high blood pressure during this ER visit?: Yes
Condition: Fair
Covid-19: Not Applicable
Discharge Problem:
acute stercoral colitis, Colitis, Acute renal insufficiency
Prescriptions:
No Action
diltiazem HCl 180 mg Capsule,Extended Release 24hr
180 mg PO DAILY
propylthiouracil 50 mg Tablet
50 mg PO BID
valsartan 80 mg Tablet
80 mg PO DAILY
temazepam 15 mg Capsule
15 mg PO HS PRN (Reason: sleep)
pantoprazole 40 mg Tablet,Delayed Release (Dr/Ec)
40 mg PO BID
mirtazapine 7.5 mg Tablet
7.5 mg PO HS
PreserVision AREDS-2 250-90-40-1 mg Tablet,Chewable
1 tab PO QAM AND QPM
Analgesic [place] (m.salic-menth) 15-10 % Cream
1 applic topical QID Qty: 85 0RF
docusate sodium 100 mg Capsule
100 mg PO BID Qty: 0 0RF
polyethylene glycol 3350 17 gram Powder In Packet
17 g PO DAILY Qty: 0 0RF
lidocaine 4 % Adhesive Patch,Medicated
1 patch topical HS Qty: 30 0RF
Referrals:
Diane Brunson MD [Family Provider, Family Practice]
Interventions
Interventions:
*Risk Screen - Suicide Last Done: 08/13/25 11:19
*General Assessment Last Done: 08/13/25 11:19
*Neglect/Abuse Screening Last Done: 08/13/25 11:19
*ED COVID-19 Vaccine History Last Done: 08/13/25 11:19
*ED Influenza Vaccine History Last Done: 08/13/25 11:19
HL-Jxtnii-Hquslylgxw Assessment Last Done: 08/13/25 11:55
Discharge Date and Time
Print Language: AUSTRIAN
[2025-08-13 12:05] LABS: Hematocrit 38.1 % (37.0-47.0); Hemoglobin 13.2 g/dL (12.0-16.0); Mean Corp Hgb Conc. 34.6 g/dL (33.0-37.0); Mean Corpuscular Volume 99.0 fL (81.0-99.0); Platelet Count 178 10^3/uL (130-400); Red Cell Dist. Width 15.4 % (11.5-14.5)
[2025-08-13] MEDS: NSS 500 IV (12:20)
[2025-08-13 12:24] LABS: ALT (SGPT) 26 U/L (0-35); AST (SGOT) 35 U/L (14-36); Albumin 3.9 g/dl (3.5-5.0); Alkaline Phosphatase 226 U/L (38-126); Blood Urea Nitrogen 41 mg/dl (7-17); Calcium 9.3 mg/dl (8.4-10.2); Carbon Dioxide 28 mmol/L (22-30); Chloride 101 mmol/L (98-107); Estimated Creatinine Clearance 21 ml/min; Glucose 112 mg/dl (70-99); Lipase 75 U/L (23-300); Potassium 3.2 mmol/L (3.5-5.1); Sodium 137 mmol/L (135-145); Total Protein 6.2 g/dl (6.3-8.2); eGFR 49.24
[2025-08-13 12:28] LABS: Absolute Neutrophils -Man Diff 12.0 10^3/uL (1.4-6.5); Normal RBC Morphology Yes; Platelets Checked Yes; Total Cells Counted 100
[2025-08-13] MEDS: OMNIPAQUE 50 ML PO (13:46)
--- NOTE | 2025-08-13 17:41 | PHANOTE ---
med rec tech: patient could not give a good report, she kept describing 4 pills by color, but was certain that she takes preservision AREDS. Med rec pulled from recent fills and physician notes from 08/08/25
[2025-08-13] MEDS: UNASYN IV (17:55)
--- NOTE | 2025-08-13 18:18 | HPS.HSE ---
Family Physician
-
Family Physician: Diane Brunson
Chief Complaint
-
weakness
History of Present Illness
85yo F with PMHx of L renal atrophy, colostomy s/p reversal 01/18/18 with small bowel resection, peritonitis at that time, open cholecystectomy, extensive lysis of adhesions, hyperthyroidism, hx of cholecystitis s/p cholecystectommy, Hx of breast CA,
essential HTN, Hx of unexplained weight loss s/p EGD in 2023, Hx of cachexia since at least 2017 was brought to the hospital since she started to decline food and became more weak. In ED c/o abd pain so CT abd done finding stercoral colitis with
stool impaction. Disimpacted in ED. ALso concern for severe chronic bronchiectasis and peripheral endobronchial infection in the left lower lobe.
As per discussion with son - his mom was not eating well for a wile now. He referred to his sister - Taylor - who is RN for further communication and to [employer] more info. Taylor said that she recently came to see her mom and was shocked of how she
looked. Due to chronc complains of back pain- she was seen by doctor and CT spine done, showing DJD, but also revealed chronci bronchial infection. So PAtient was seen by who was plannign for CT chest. Also managed for her
hyperthyroidism by and has cortisol level drawn and results pending for it.
Review of the chart showed disgnosis of cachexia since 2017 and EGD done in Jul 2024 in with indication for abnormal weight loss, that showewd only multiple plaques in esophagus and normal stomach and duodenum
Daughter goal is to improve her mom enough to be able to move her to [facility] where her daughter found a assisted living place for her.
Medical History
Past Medical History
Past Medical History: Reports Other
Additional Past Medical History:
see above
Past Surgical History: Reports Other (see above)
Social History
Unable to obtain full social history at this time due to: Acuity
Tobacco: Non-smoker
Alcohol: None
Drug: None
Family History
Family History: Not pertinent
Allergies / Home Medications
Allergies reflects when Allergies were last updated in [employer].
Home Medications with original date entered in [employer]
Allergy/Medication List:
Allergies
Allergy/AdvReac Type Severity Reaction Status Date / Time
prochlorperazine Allergy 1960 had Verified 04/13/25 09:42
palpitations
Home Medications
diltiazem HCl 180 mg capsule,24 hr,extended release 180 mg PO DAILY Blood Pressure 01/05/25
pantoprazole 40 mg tablet,delayed release 40 mg PO BID Gastrointestinal Issue 01/05/25
propylthiouracil 50 mg tablet 50 mg PO BID Thyroid 01/05/25
temazepam 15 mg capsule 15 mg PO HS PRN sleep 01/05/25
vit C 250 mg-E 90 mg-zinc 40 mg-copper 1 bc-ztwrtz-jatmoa chew tablet (PreserVision AREDS-2) 1 tab PO QAM AND QPM Supplement 01/05/25
Review of Systems
-
Unable to obtain full review of systems at this time due to: Acuity
History Source: Patient
Physical Exam
Vital Signs
Vital Signs
Temp Pulse Resp BP Pulse Ox
98.0 F 91 21 158/72 96
08/13/25 11:19 08/13/25 15:30 08/13/25 15:30 08/13/25 15:00 08/13/25 17:15
Physical Exam
General: No Apparent Distress, Appears Chronically Ill and Cachectic
HEENT: Moist mucous membranes, Atraumatic and [place] Conjunctivae
Respiratory: Clear; No Wheezes or Crackles
Cardiac: S1/S2 and Regular Rhythm; No Tachycardia
GI: Soft, Tender and Distended
Genito-urinary: No costovertebral tender
Musculoskeletal: No Clubbing, No Cyanosis and No Edema
Skin: Warm; No Rash or Jaundice
Neuro: Awake and Alert
Psych: Calm and Apparent Dementia
Laboratory Results
-
08/13/25 11:39
08/13/25 12:03
Laboratory Results
Total Bilirubin 1.0 mg/dl (0.2-1.3) 08/13/25 12:03
AST 35 U/L (14-36) 08/13/25 12:03
ALT 26 U/L (0-35) 08/13/25 12:03
Alkaline Phosphatase 226 U/L (38-126) H 08/13/25 12:03
Lipase 75 U/L (23-300) 08/13/25 12:03
Data Reviewed
-
CT Scan: Report Reviewed by me
Lab Data: Labs Reviewed by me
Impression/Plan
-
A/P:
#Stercoral colitis with constipation and stool impaction
Zosyn
Laxatives
#Severe chronic bronchiectasis and peripheral endobronchial infection in the left lower lobe
Vanco/zosyn
Sptum Cx
Legionella and S/pneumonia Urinary Ag
Bcx
Pulm consult
#Weakness, ambulatory dysfunction
#Cachexia
Multifactorial and most likey chronic, cannot r/o possible contribution of age related cognitive impariment
Check UA for completeness
AUDITING CODER
CHeck TSH, FT4, FT3, cortisol
PT/OT
#Hypokalemia
replete and follow
check Mg
#Elevated alk.phos
most liekly 2/2 colitis, since pt s/p cholecystectomy
#Essential HTN
#Hyperthyroidism
#Insomnia
#L kidney atrophy
cont home meds
Hold temazepam
DVT ppx hep
DNR/DNI - son referred to Taylor, sister for decision. Taylor verbalized that she had that conversation with her mom and would like no rescusitation and no intubation if such need will arise
I have spent at least 79min reviewing chart, test results, communication with consultants, family and direct patient care
[2025-08-13 18:28] LABS: Free T3 2.50 pg/ml (2.77-5.27)
[2025-08-13 18:41] LABS: TSH 0.02 uIU/ml (0.47-4.68)
[2025-08-13] MEDS: ZOSYN 50 IV (18:58)
--- NOTE | 2025-08-13 20:18 | PHA.VAN.IN ---
Assessment
- Assessment
Renal Function: Appears similar to baseline
Maximum Temperature: 98F
Concomitant Antimicrobials: Zosyn
Plan
- Plan
Initial / Loading Dose: 1000MG
Maintenance Regimen: Dosing by levels
Monitoring: Random vancomycin with AM labs on 08/14/25
MRSA Screen: Ordered per protocol
Pharmacokinetics Vancomycin I
- -
Patient Age: 85
Patient Sex: Female
Vancomycin Day #: 1
Indication: Other
Requesting Provider: Jacky
Pertinent Antimicrobial Allergies:
None
Height / Weight:
Height 5 ft
Actual Weight 35 kg
Pertinent Past Medical History: extensive abdominal surgeries c/b cachexia, chronic bronchiectasis
- Vital Signs / Lab Results
Temp Pulse Resp BP Pulse Ox
98.0 F 91 21 158/72 96
08/13/25 11:19 08/13/25 15:30 08/13/25 15:30 08/13/25 15:00 08/13/25 19:30
Lab Results - Hematology
08/13/25
11:39
WBC 14.3 H
Band Neutrophils 17 H
Lab Results - Chemistry
08/13/25 08/13/25
11:39 12:03
BUN Cancelled 41 H
Creatinine Cancelled 1.1 H
Estimated Creat Clear Cancelled 21
Albumin Cancelled 3.9
[2025-08-13] MEDS: KCL 270 MEQ IV (20:55)
[2025-08-13] MEDS: D5LR 1000 IV (21:24)
[2025-08-13] MEDS: PROTONIX 40 MG PO (21:28)
[2025-08-13] MEDS: HEPARIN 5000 UNITS SC (21:28)
[2025-08-13] MEDS: PROPYLTHIOURACIL 50 MG PO (21:28)
[2025-08-13] MEDS: VANCOCIN 200 IV (21:31)
[2025-08-13] MEDS: TYLENOL 650 MG PO (21:35)
[2025-08-13 21:42] LABS: Magnesium 2.2 mg/dl (1.6-2.3)
[2025-08-13] MEDS: MELATONIN 3 MG PO (22:09)
[2025-08-13] MEDS: MIRALAX PO (23:14)
[2025-08-13 23:15] LABS: Urine Character Clear (Clear)
[2025-08-13 23:20] LABS: Urine Squamous Cell 0-2 /LPF (Few)
[2025-08-13 23:21] LABS: Urine Red Blood Cell 0-2 /HPF (0-2)
[2025-08-14] MEDS: LIDOCAINE 4% PATCH 1 PATCH TOPICAL (00:20)
[2025-08-14] MEDS: ZOSYN 50 IV ×4 (00:24→17:43)
--- NOTE | 2025-08-14 00:32 | PTCARENOTE ---
Received patient from ED via stretcher; [employer] orders; AAOx3, forgetful, lethargic. C/O pain to lower back and tenderned abdomen. Patient arrived saturated of urine and old bowel movement. Sacrum and b/l heels nonblanchable red- foams applied.
Centrella Pro provided.
--- NOTE | 2025-08-14 00:35 | PTCARENOTE ---
Received patient from ED via stretcher; Medsurg orders; AAOx3 but forgetful, lethargic. C/O pain to lower back and tenderness throughout abdomen. Patient arrived saturated of urine and old bowel movement. Sacrum and b/l heels nonblanchable red-
foams applied. Centrella Pro provided.
Blood cultures x2 that were ordered at 1734 obtained. Patient received Zosyn and Unasyn in ED. Urinalysis Reflex to culture also obtained.
Plan of care discussed. Call galloway within reach.
[2025-08-14] MEDS: DILAUDID 0.25 MG IV (02:06)
[2025-08-14] MEDS: TYLENOL 650 MG PO (05:17)
[2025-08-14 07:45] VITALS: BP 133/68
[2025-08-14 09:07] LABS: Hematocrit 31.3 % (37.0-47.0); Hemoglobin 11.1 g/dL (12.0-16.0); Mean Corp Hgb Conc. 35.5 g/dL (33.0-37.0); Mean Corpuscular Volume 99.7 fL (81.0-99.0); Platelet Count 152 10^3/uL (130-400); Red Cell Dist. Width 15.3 % (11.5-14.5)
[2025-08-14] MEDS: CARDIZEM CD 180 MG PO (09:20)
[2025-08-14] MEDS: PROPYLTHIOURACIL 50 MG PO ×2 (09:20→21:09)
[2025-08-14] MEDS: PROTONIX 40 MG PO ×2 (09:21→21:09)
[2025-08-14] MEDS: HEPARIN 5000 UNITS SC ×2 (09:21→21:09)
[2025-08-14] MEDS: MIRALAX PO (09:21)
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
[2025-08-14 09:45] LABS: ALT (SGPT) 22 U/L (0-35); AST (SGOT) 29 U/L (14-36); Albumin 3.2 g/dl (3.5-5.0); Alkaline Phosphatase 193 U/L (38-126); Blood Urea Nitrogen 30 mg/dl (7-17); Calcium 8.7 mg/dl (8.4-10.2); Carbon Dioxide 24 mmol/L (22-30); Chloride 101 mmol/L (98-107); Estimated Creatinine Clearance 24 ml/min; Glucose 130 mg/dl (70-99); Iron 24 ug/dl (37-170); Magnesium 2.2 mg/dl (1.6-2.3); Potassium 3.8 mmol/L (3.5-5.1); Sodium 132 mmol/L (135-145); Total Protein 5.3 g/dl (6.3-8.2); eGFR > 60.00
[2025-08-14 09:55] LABS: Total Iron Binding Capacity 202 ug/dl (265-497)
[2025-08-14 10:03] LABS: Cortisol, Random 36.8 ug/dl
[2025-08-14 10:07] LABS: Ferritin 139.0 ng/ml (11.1-264.0)
[2025-08-14 10:33] LABS: Absolute Neutrophils -Man Diff 8.9 10^3/uL (1.4-6.5)
[2025-08-14 10:34] LABS: Platelets Checked Yes
--- NOTE | 2025-08-14 10:34 | PTOTSP ---
Speech Therapy Evaluation:
Pt presents with signs concerning for oropharyngeal dysphagia, likely in the setting of acute and chronic risk factors. Chronic risk factors include unexplained weight loss, cachexia, and chronic bronchiectasis/endobronchial infection. Acute risk
factors include generalized weakness and fatigue in the setting of ongoing weight loss and decreased PO intake. At bedside, oral phase prolonged, however suspect largely related to weakness. Pharyngeal phase characterized by intermittent audible
swallows, multiple swallows, and brief throat clears during mastication of solids that were also present without PO, question if related to chronic bronchiectasis. Pt at risk for development of complication from aspiration given limited ambulation,
compromised respiratory system, and impaired cough. Given imaging without concern for pneumonia, pt on room air, and afebrile, recommend to continue oral diet as follows:
Recommend:
1. IDDSI 7 (regular solids), IDDSI 0 (thin liquids) to optimize selections given weight loss/ not eating well per son
2. Medications as best tolerated
3. General aspiration precautions
4. [employer] to follow to monitor tolerance of diet
[2025-08-14 10:35] LABS: Anisocytosis 1+; Hypochromasia 1+; Normal RBC Morphology No; Total Cells Counted 100
--- NOTE | 2025-08-14 10:35 | PHA.VAN.FU ---
Vancomycin Assessment / Plan
- Assessment
Renal Function: SCR Decreasing
WBC's are: WNL
In the past 24 hrs, patient has been: Febrile (TMAX 100.7 F)
Concomitant Antimicrobials: PIPERACILLIN/TAZOBACTAM
- Assessment - Therapeutic Drug Monitoring
Random Level: 11.8 DRAWN ~11 HR AFTER PREVIOUS DOSE VANCO 1000MG
- Dosing Plan
Dosing by Level: Re-dose today (VANCO 750MG X1)
- Monitoring Plan
Random Level: 08/15 @0600
- Follow Up
Pharmacy will continue to follow.
Vancomycin Follow UP
- -
Patient Age: 85
Patient Sex: Female
Vancomycin Day #: 2
Indication: Other
Requesting Provider: Jacky
Pertinent Antimicrobial Allergies:
None
Height / Weight:
Height 5 ft 2 in
Actual Weight 33.112 kg
Pertinent Past Medical History: extensive abdominal surgeries c/b cachexia, chronic bronchiectasis
- Vital Signs / Lab Results
Temp Pulse Resp BP Pulse Ox
98.7 F 74 18 133/68 97
08/14/25 07:45 08/14/25 07:45 08/14/25 07:45 08/14/25 09:20 08/14/25 07:45
Lab Results - Hematology
08/13/25 08/14/25
11:39 08:19
WBC 14.3 H 9.7
Band Neutrophils 17 H
Lab Results - Chemistry
08/13/25 08/13/25 08/14/25
11:39 12:03 06:00
BUN Cancelled 41 H 30 H
Creatinine Cancelled 1.1 H 0.9
Estimated Creat Clear Cancelled 24
Albumin Cancelled 3.9 3.2 L
Lab Results - Urine
08/13/25 08/13/25
11:39 23:09
Urine Nitrite (Reflex) Cancelled Negative
Leukocyte Esterase Rfl Cancelled 1+ A
Ur Squamous Epith Cells 0-2
Microbiology Results
08/13/25 21:12 Nasal Screen MRSA (PCR) - Final
Nose MRSA not detected - performed by PCR methodology.
08/13/25 23:09 Legionella Urinary Antigen - Final
Urine Negative for Legionella pneumophila Serogroup 1 antigen.
A negative result does not rule out the possiblity of
Legionella infection due to other serogroups or species of
Legionella. Clinical correlation is recommended.
Streptococcus pneumoniae Antigen (M - Final
Negative for Streptococcus pneumoniae antigen.
A negative result does not exclude infection with
Streptococcus pneumoniae. Clinical correlation is
recommended.
Therapeutic Drug Monitoring
Random Vancomycin 11.8 ug/ml 08/14/25 08:19
[2025-08-14 10:38] LABS: Folate 15.3 ng/ml (2.76-20); Vitamin B12 896 pg/ml (239-931)
[2025-08-14] MEDS: VANCOCIN 150 IV (10:53)
[2025-08-14] MEDS: LIDOCAINE 4% PATCH 4 PATCH TOPICAL (11:45)
[2025-08-14] MEDS: D5LR 1000 IV (11:46)
--- NOTE | 2025-08-14 13:22 | CM ---
Reviewed the chart notes and spoke with the patient at the bedside. Patient admitted for stercoral colitis. The patient resides alone in an apartment with elevator access. The patient reports on DME in home is a rolling walker. The patient
reports no VN or SNF in the past. The patient confirmed her pharmacy of choice is [facility]. CM continues to be available to patient/family and is monitoring medical plan for needs at discharge.
Plan: Discharge plans will depend on the patient's progress.
--- NOTE | 2025-08-14 13:52 | W.PN.HOSP.TC ---
Today's Communication/Plan
-
see outlined plan below
Assessment / Plan
Assessment / Plan
Assessment:
Stercoral colitis with constipation and stool impaction
- s/p disimpaction in ER; continue oral laxatives and monitor bowel movements
- continue Zosyn, day 1
Severe chronic bronchiectasis and peripheral endobronchial infection in the left lower lobe
Mild chronic endobronchial infection in the right lower lobe
- legionella/s pneumoniae ag negative
- check sputum cx
- continue Zosyn, day 1
- continue Vanco, day 1; check MRSA swab
- Pulmonary consulted
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
- nutrition evaluation
- diet with supplements
Weakness
Ambulatory dysfunction
- PT/OT
Essential HTN
- CCB
Hypokalemia
- replete and follow
- Mag normal
Elevated alk.phos
- most likely 2/2 colitis, since pt s/p cholecystectomy
Hyperthyroidism
- on PTU
- TSH low, T3/T4 normal; c/w PTU use
- follows with Dr. Ortiz
Insomnia
- hold Remeron
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
DVT ppx: SC Heparin
Code: DNR/DNI per daughter, Taylor
Anticipated Discharge: > 48 hours
Subjective/Interval History
-
Date of Service: August 14, 2025
passed speech evaluation this AM
denies any SOB but does note cough at times
no fevers
reports chronic weight loss
Objective Data
-
Labs:
Laboratory Results
08/14/25 08/14/25
06:00 08:19
WBC 9.7
Hgb 11.1 L
Hct 31.3 L
Plt Count 152
Sodium 132 L
Potassium 3.8
Chloride 101
Carbon Dioxide 24
BUN 30 H
Creatinine 0.9
Glucose 130 H
Calcium 8.7
Total Bilirubin 0.8
AST 29
ALT 22
Alkaline Phosphatase 193 H
Vital Signs:
Vital Signs
Temp Pulse Resp BP Pulse Ox
98.7 F 74 18 133/68 97
08/14/25 07:45 08/14/25 07:45 08/14/25 07:45 08/14/25 09:20 08/14/25 07:45
I&O
08/13/25 08/14/25 08/15/25
06:59 06:59 06:59
Intake Total 1769
Balance 1769
Physical Exam
-
General: Cachectic
HEENT: Normocephalic and Atraumatic
Respiratory: Negative Wheezes
Cardiac: Regular Rhythm and S1/S2
GI: Soft
Neuro: AO x 3
Psych: Calm
Data Reviewed
-
Total Time Spent with Patient (in minutes): 45
Labs: Labs Reviewed by me
--- NOTE | 2025-08-14 14:19 | PTCARENOTE ---
pt with 4 lidocaine patches. two to the back and one to each hip. preventative foams placed on upper spine, sacrum and b/l heels. pt on IVF and IV abx, seen by speech and cleared for regular diets. pt also seen by beck operator and ensures TID ordered.
[2025-08-14 14:38] VITALS: BP 143/69; PULSE 87; O2SAT 97
[2025-08-14 14:54] VITALS: BP 143/69; PULSE 87; O2SAT 97
[2025-08-14 15:05] VITALS: BP 113/60
[2025-08-14 15:09] VITALS: BMI 14.1
[2025-08-14] MEDS: TYLENOL 1000 MG PO ×2 (15:09→21:09)
[2025-08-14] MEDS: ROXICODONE 2.5 MG PO ×2 (15:09→21:08)
[2025-08-14] MEDS: REMOVE LIDOCAINE PATCH 4 PATCH REMOVE (21:11)
[2025-08-14 23:25] VITALS: BP 127/52
[2025-08-15] MEDS: ZOSYN 50 IV ×4 (01:14→17:03)
[2025-08-15] MEDS: TYLENOL 650 MG PO (01:16)
[2025-08-15] MEDS: D5LR 1000 IV (01:18)
[2025-08-15 06:39] LABS: Hematocrit 28.0 % (37.0-47.0); Hemoglobin 10.0 g/dL (12.0-16.0); Mean Corp Hgb Conc. 35.7 g/dL (33.0-37.0); Mean Corpuscular Volume 100.0 fL (81.0-99.0); Platelet Count 127 10^3/uL (130-400); Red Cell Dist. Width 15.0 % (11.5-14.5)
[2025-08-15 06:51] LABS: ALT (SGPT) 18 U/L (0-35); AST (SGOT) 22 U/L (14-36); Albumin 2.8 g/dl (3.5-5.0); Alkaline Phosphatase 134 U/L (38-126); Blood Urea Nitrogen 32 mg/dl (7-17); Calcium 8.3 mg/dl (8.4-10.2); Carbon Dioxide 27 mmol/L (22-30); Chloride 102 mmol/L (98-107); Estimated Creatinine Clearance 24 ml/min; Glucose 110 mg/dl (70-99); Potassium 3.8 mmol/L (3.5-5.1); Sodium 132 mmol/L (135-145); Total Protein 4.9 g/dl (6.3-8.2); eGFR > 60.00
[2025-08-15 07:00] VITALS: BP 132/60
[2025-08-15 07:07] LABS: Vitamin D, 25-OH*** 69.6 ng/mL (30-80)
[2025-08-15] MEDS: PROTONIX 40 MG PO ×2 (08:42→19:27)
[2025-08-15] MEDS: HEPARIN 5000 UNITS SC ×2 (08:42→19:27)
[2025-08-15] MEDS: TYLENOL 1000 MG PO ×3 (08:42→20:45)
[2025-08-15] MEDS: CARDIZEM CD 180 MG PO (08:42)
[2025-08-15] MEDS: MIRALAX PO (08:43)
[2025-08-15] MEDS: PROPYLTHIOURACIL 50 MG PO ×2 (08:43→19:27)
[2025-08-15] MEDS: LIDOCAINE 4% PATCH 4 PATCH TOPICAL (08:44)
[2025-08-15 08:57] LABS: Nucleated Red Blood Cells % 0 %
--- NOTE | 2025-08-15 09:33 | W.PN.HOSP.TC ---
Today's Communication/Plan
-
continue Zosyn, stop Vanco
Calorie counts; reg diet + ensure
Assessment / Plan
Assessment / Plan
Assessment:
Stercoral colitis with constipation and stool impaction
Hx of sigmoidectomy and descending colitis
- s/p disimpaction in ER; continue oral laxatives and monitor bowel movements
- continue Zosyn, day 2
- CRS evaluation; possibly OP vs IP - await CRS reply
Severe chronic bronchiectasis and peripheral endobronchial infection in the left lower lobe
Mild chronic endobronchial infection in the right lower lobe
- legionella/s pneumoniae ag negative
- check sputum cx
- continue Zosyn, day 2
- MRSA negative, stop Vanco
- Pulmonary following
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
Failure to thrive
- nutrition evaluation
- diet with supplements
- calorie counts
Weakness
Ambulatory dysfunction
- PT/OT - SNF recommended, patient prefers home
Essential HTN
- Continue CCB
Hypokalemia
- replete and follow
- Mag normal
Elevated alk.phos
- most likely 2/2 colitis, since pt s/p cholecystectomy
Hyperthyroidism
- on PTU
- TSH low, T3/T4 normal; c/w PTU use
- follows with Dr. Ortiz
Insomnia
- hold Remeron
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
DVT ppx: SC Heparin
Code: DNR/DNI per daughter, Taylor
Anticipated Discharge: > 48 hours
Subjective/Interval History
-
Date of Service: August 15, 2025
no new complaints
denies issues with swallowing, abd pain pre-prandial or post-prandial; just feels like her previous living arrangement did not allow her to eat adequately
Objective Data
-
Labs:
Laboratory Results
08/15/25
05:55
WBC 7.9
Hgb 10.0 L
Hct 28.0 L
Plt Count 127 L
Sodium 132 L
Potassium 3.8
Chloride 102
Carbon Dioxide 27
BUN 32 H
Creatinine 0.9
Glucose 110 H
Calcium 8.3 L
Total Bilirubin 0.3
AST 22
ALT 18
Alkaline Phosphatase 134 H
Vital Signs:
Vital Signs
Temp Pulse Resp BP Pulse Ox
98.1 F 67 16 132/60 95
08/15/25 07:00 08/15/25 07:00 08/15/25 07:00 08/15/25 07:00 08/15/25 07:00
I&O
08/14/25 08/15/25 08/16/25
06:59 06:59 06:59
Intake Total 1770 / 1770 1700 / 1700
Balance 1770 / 1770 1700 / 1700
Physical Exam
-
General: No Apparent Distress and Cachectic
HEENT: Normocephalic and Atraumatic
Respiratory: Negative Wheezes
Cardiac: Regular Rhythm and S1/S2
GI: Soft
Genito-urinary: No Costovertebral Tender
Neuro: AO x 3
Psych: Calm
Data Reviewed
-
Total Time Spent with Patient (in minutes): 42
Labs: Labs Reviewed by me
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
--- NOTE | 2025-08-15 11:10 | PN.CDI ---
CDI
- -
CDI:
Physician Documentation Request
Admit Date: 08/13/25 18:45
Dear Doctor Chapin,
Please review the following and provide your response in the progress notes.
Clinical Indicators:
- RN skin assessments indicate:
- Stage 1 sacrum pressure injury, POA
- Stage 1 bilateral heels pressure injury, POA
Physician documentation of the type and location of wounds is required for compliant documentation. Based on the above clinical findings and your assessment, please provide the following in your progress note:
1. Location of the ulcer/wound, including laterality.
2. Type (etiology) of ulcer/wound:
- Diabetic ulcer
- Arterial (ischemic) ulcer
- Traumatic wound
- Venous stasis ulcer
- Pressure (decubitus) ulcer
- Other
Use of terms such as suspected, likely, concern for, or probable (associated with a specific diagnosis that is being evaluated, monitored, or treated as if it exists) are acceptable and can be coded in the inpatient setting, when documented at the
time of discharge.
Thank you,
Ning Lora RN
CDI Specialist
Please use your independent medical judgment in providing your response.
*Source: National Pressure Ulcer Advisory Panel (NPUAP)
[2025-08-15 15:00] VITALS: BP 110/63
--- NOTE | 2025-08-15 15:32 | CM ---
Reviewed the chart notes and spoke with the patient at the bedside. Discussed with the patient PT recommendation of SNF, patient is adamant about not going to one. PT will most likely re-evaluate again tomorrow. Patient is currently on a calorie
count. CM continues to be available to patient/family and is monitoring medical plan for needs at discharge.
Plan: Discharge plans will depend on the patient's progress. Patient is too weak to return to her apartment safely at this moment.
[2025-08-15 23:24] VITALS: BP 142/66
[2025-08-15] MEDS: ROXICODONE 2.5 MG PO (23:57)
[2025-08-16] MEDS: FLUSH (NSS) 4 FLUSH IV
[2025-08-16] MEDS: ZOSYN 50 IV ×5 (05:17→23:49)
[2025-08-16] MEDS: FLUSH (NSS) 5 FLUSH IV (05:17)
[2025-08-16] MEDS: ROXICODONE 2.5 MG PO ×2 (05:53→20:44)
[2025-08-16 07:00] VITALS: BP 156/66
[2025-08-16 08:07] LABS: Hematocrit 30.0 % (37.0-47.0); Hemoglobin 10.0 g/dL (12.0-16.0); Mean Corp Hgb Conc. 33.3 g/dL (33.0-37.0); Mean Corpuscular Volume 101.7 fL (81.0-99.0); Platelet Count 141 10^3/uL (130-400); Red Cell Dist. Width 15.3 % (11.5-14.5)
--- NOTE | 2025-08-16 08:17 | W.PN.HOSP.TC ---
Today's Communication/Plan
-
continue Abx
continue tammy counts
DC planning to SNF
Assessment / Plan
Assessment / Plan
Assessment:
Stercoral colitis with constipation and stool impaction
Hx of sigmoidectomy and descending colitis
- s/p disimpaction in ER; continue oral laxatives and monitor bowel movements
- continue Zosyn, day 01/13
- OP GI evaluation
Severe chronic bronchiectasis and peripheral endobronchial infection in the left lower lobe
Mild chronic endobronchial infection in the right lower lobe
- legionella/s pneumoniae ag negative
- continue Zosyn, day 01/13
- MRSA negative, stop Vanco
- Pulmonary signed off
- OP Pulm evaluation
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
Severe protein tammy malnutrition
Failure to thrive
- nutrition evaluation
- diet with supplements
- calorie counts
Weakness
Ambulatory dysfunction
- PT/OT - SNF recommended
Essential HTN
- Continue CCB
Hypokalemia
- replete and follow
- Mag normal
Elevated alk.phos
- most likely 2/2 colitis, since pt s/p cholecystectomy
Hyperthyroidism
- on PTU
- TSH low, T3/T4 normal; c/w PTU use
- follows with Dr. Ortiz
Insomnia
- hold Remeron
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
Stage 1 sacrum pressure injury, POA
Stage 1 bilateral heels pressure injury, POA
DVT ppx: SC Heparin
Code: DNR/DNI per daughter, Taylor
Anticipated Discharge: 24 - 48 hours
Subjective/Interval History
-
Date of Service: August 16, 2025
resting comfortably, no new complaints
Objective Data
-
Labs:
Laboratory Results
08/16/25
07:24
WBC 8.6
Hgb 10.0 L
Hct 30.0 L
Plt Count 141
Sodium Pending
Potassium Pending
Chloride Pending
Carbon Dioxide Pending
BUN Pending
Creatinine Pending
Glucose Pending
Calcium Pending
Total Bilirubin Pending
AST Pending
ALT Pending
Alkaline Phosphatase Pending
Vital Signs:
Vital Signs
Temp Pulse Resp BP Pulse Ox
99.1 F 68 18 142/66 94
08/15/25 23:24 08/15/25 23:24 08/15/25 23:24 08/15/25 23:24 08/15/25 23:24
I&O
08/15/25 08/16/25 08/17/25
06:59 06:59 06:59
Intake Total 1700 / 1700 1310 / 1310
Output Total 400 / 400
Balance 1700 / 1700 910 / 910
Physical Exam
-
General: No Apparent Distress and Cachectic
HEENT: Normocephalic and Atraumatic
Respiratory: Negative Wheezes
Cardiac: Regular Rhythm and S1/S2
GI: Soft
Neuro: AO x 3
Psych: Calm
Data Reviewed
-
Total Time Spent with Patient (in minutes): 41
Labs: Labs Reviewed by me
[2025-08-16 08:27] LABS: ALT (SGPT) 18 U/L (0-35); AST (SGOT) 20 U/L (14-36); Albumin 2.8 g/dl (3.5-5.0); Alkaline Phosphatase 108 U/L (38-126); Blood Urea Nitrogen 21 mg/dl (7-17); Calcium 8.0 mg/dl (8.4-10.2); Carbon Dioxide 30 mmol/L (22-30); Chloride 104 mmol/L (98-107); Estimated Creatinine Clearance 27 ml/min; Glucose 89 mg/dl (70-99); Potassium 3.6 mmol/L (3.5-5.1); Sodium 134 mmol/L (135-145); Total Protein 5.0 g/dl (6.3-8.2); eGFR > 60.00
[2025-08-16] MEDS: PROTONIX 40 MG PO ×2 (09:07→19:15)
[2025-08-16] MEDS: PROPYLTHIOURACIL 50 MG PO ×2 (09:07→19:15)
[2025-08-16] MEDS: CARDIZEM CD 180 MG PO (09:07)
[2025-08-16] MEDS: MIRALAX 17 GRAMS PO (09:07)
[2025-08-16] MEDS: HEPARIN 5000 UNITS SC ×2 (09:08→19:15)
[2025-08-16] MEDS: TYLENOL 1000 MG PO ×3 (09:08→20:45)
[2025-08-16] MEDS: LIDOCAINE 4% PATCH 4 PATCH TOPICAL (09:08)
[2025-08-16 11:16] VITALS: BP 135/56; PULSE 67; O2SAT 100
[2025-08-16 15:00] VITALS: BP 153/75
--- NOTE | 2025-08-16 15:23 | CM ---
Reviewed the chart notes and spoke with the patient at the bedside. CM spoke with the patient's daughter Merlene via phone. Merlene was unable to speak with CM until 6pm tonight. Arranged for CM to reach out to her at 9am tomorrow, 6am her time.
Patient agreeable to SNF. CM continues to be available to patient/family and is monitoring medical plan for needs at discharge.
Plan: Discharge to SNF/rehab once bed secured and auth obtained.
[2025-08-16 23:46] VITALS: BP 166/68
[2025-08-16] MEDS: MELATONIN 5 MG PO (23:59)
[2025-08-17] MEDS: ROXICODONE 2.5 MG PO (03:43)
[2025-08-17] MEDS: TYLENOL 650 MG PO (03:43)
[2025-08-17] MEDS: ZOSYN 50 IV (05:18)
[2025-08-17 07:45] VITALS: BP 176/67
[2025-08-17 07:52] LABS: Hematocrit 31.6 % (37.0-47.0); Hemoglobin 10.7 g/dL (12.0-16.0); Mean Corp Hgb Conc. 33.9 g/dL (33.0-37.0); Mean Corpuscular Volume 103.3 fL (81.0-99.0); Platelet Count 167 10^3/uL (130-400); Red Cell Dist. Width 15.2 % (11.5-14.5)
[2025-08-17 09:08] LABS: ALT (SGPT) 19 U/L (0-35); AST (SGOT) 22 U/L (14-36); Albumin 2.9 g/dl (3.5-5.0); Alkaline Phosphatase 98 U/L (38-126); Blood Urea Nitrogen 22 mg/dl (7-17); Calcium 8.5 mg/dl (8.4-10.2); Carbon Dioxide 29 mmol/L (22-30); Chloride 103 mmol/L (98-107); Estimated Creatinine Clearance 21 ml/min; Glucose 83 mg/dl (70-99); Potassium 3.8 mmol/L (3.5-5.1); Sodium 136 mmol/L (135-145); Total Protein 5.2 g/dl (6.3-8.2); eGFR 55.21
[2025-08-17] MEDS: PROPYLTHIOURACIL 50 MG PO ×2 (09:15→21:10)
[2025-08-17] MEDS: MIRALAX PO (09:15)
[2025-08-17] MEDS: PROTONIX 40 MG PO ×2 (09:15→21:09)
[2025-08-17] MEDS: TYLENOL 1000 MG PO ×3 (09:16→21:10)
[2025-08-17] MEDS: CARDIZEM CD 180 MG PO (09:16)
[2025-08-17] MEDS: HEPARIN 5000 UNITS SC ×2 (09:17→21:10)
[2025-08-17] MEDS: LIDOCAINE 4% PATCH 4 PATCH TOPICAL (09:17)
--- NOTE | 2025-08-17 10:33 | W.PN.HOSP.TC ---
Today's Communication/Plan
-
Medically stable for DC to SNF when bed/auth obtained.
switch to Augmentin
Assessment / Plan
Assessment / Plan
Assessment:
Stercoral colitis with constipation and stool impaction
Hx of sigmoidectomy and descending colitis
- s/p disimpaction in ER; continue oral laxatives and monitor bowel movements
- Continue abx day 4/7 - switch to Augmentin
- OP GI evaluation
Severe chronic bronchiectasis and peripheral endobronchial infection in the left lower lobe
Mild chronic endobronchial infection in the right lower lobe
- legionella/s pneumoniae ag negative
- Continue abx day 4/7 - switch to Augmentin
- MRSA negative, stop Vanco
- Pulmonary signed off
- OP Pulm evaluation
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
Severe protein tammy malnutrition
Failure to thrive
- nutrition evaluation
- diet with supplements
- calorie counts
Weakness
Ambulatory dysfunction
- PT/OT - SNF recommended; patient agreeable
Essential HTN
- Continue CCB
Hypokalemia
- replete and follow
- Mag normal
Elevated alk.phos
- most likely 2/2 colitis, since pt s/p cholecystectomy
Hyperthyroidism
- on PTU
- TSH low, T3/T4 normal; c/w PTU use
- follows with Dr. Ortiz
Insomnia
- hold Remeron
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
Stage 1 sacrum pressure injury, POA
Stage 1 bilateral heels pressure injury, POA
Chronic back pain
- lidocaine patches, heat pad, Scheduled Tylenol, prn oxy
DVT ppx: SC Heparin
Code: DNR/DNI per daughter, Taylor
Dispo: Medically stable for DC to SNF when bed/auth obtained.
Anticipated Discharge: 24 - 48 hours
Subjective/Interval History
-
Date of Service: August 17, 2025
no new complaints
requesting heating pad for back pain - ordered
agreeable to SNF
Objective Data
-
Labs:
Laboratory Results
08/17/25
07:01
WBC 7.4
Hgb 10.7 L
Hct 31.6 L
Plt Count 167
Sodium 136
Potassium 3.8
Chloride 103
Carbon Dioxide 29
BUN 22 H
Creatinine 1.0
Glucose 83
Calcium 8.5
Total Bilirubin 0.4
AST 22
ALT 19
Alkaline Phosphatase 98
Vital Signs:
Vital Signs
Temp Pulse Resp BP Pulse Ox
98.4 F 67 16 176/67 95
08/17/25 07:45 08/17/25 09:16 08/17/25 07:45 08/17/25 09:16 08/17/25 07:45
I&O
08/16/25 08/17/25 08/18/25
06:59 06:59 06:59
Intake Total 1310 / 1310 1110 / 1110
Output Total 400 / 400
Balance 910 / 910 1110 / 1110
Physical Exam
-
General: No Apparent Distress and Cachectic
HEENT: Normocephalic and Atraumatic
Respiratory: Negative Wheezes
Cardiac: Regular Rhythm and S1/S2
GI: Soft
Neuro: AO x 3
Psych: Calm
Data Reviewed
-
Total Time Spent with Patient (in minutes): 41
Labs: Labs Reviewed by me
[2025-08-17 11:27] VITALS: BP 142/70; PULSE 81; O2SAT 94
--- NOTE | 2025-08-17 12:16 | CM ---
Addendum entered by Cony Gerber, RN 08/17/25 14:56:
Reached out to daughter to inform that [facility] have offered a bed. Awaiting call back.
Original Note:
Reviewed the chart notes. CM spoke with the patient's daughter Taylor via telephone today. Discussed discharge plans. Taylor lives on the [facility]. Discussed area SNFs and that auth would need to be obtained for the patient to go to rehab.
Patient's daughter in agreement with referrals being sent to area SNFs. Referrals sent in [facility]. CM continues to be available to patient/family and is monitoring medical plan for needs at discharge.
Plan: Discharge to SNF/rehab once bed secured and auth obtained.
[2025-08-17 15:45] VITALS: BP 145/68
[2025-08-17] MEDS: AUGMENTIN 500 MG/125 MG 1 TABLET PO (21:09)
[2025-08-17 23:13] VITALS: BP 172/83
[2025-08-18] MEDS: ROXICODONE 2.5 MG PO ×3 (00:06→22:40)
[2025-08-18 07:40] VITALS: BP 165/77
[2025-08-18 07:41] LABS: Hematocrit 30.9 % (37.0-47.0); Hemoglobin 10.2 g/dL (12.0-16.0); Mean Corp Hgb Conc. 33.0 g/dL (33.0-37.0); Mean Corpuscular Volume 105.8 fL (81.0-99.0); Platelet Count 169 10^3/uL (130-400); Red Cell Dist. Width 15.3 % (11.5-14.5)
[2025-08-18 08:06] LABS: ALT (SGPT) 19 U/L (0-35); AST (SGOT) 20 U/L (14-36); Albumin 3.0 g/dl (3.5-5.0); Alkaline Phosphatase 99 U/L (38-126); Blood Urea Nitrogen 23 mg/dl (7-17); Calcium 8.4 mg/dl (8.4-10.2); Carbon Dioxide 32 mmol/L (22-30); Chloride 102 mmol/L (98-107); Estimated Creatinine Clearance 27 ml/min; Glucose 83 mg/dl (70-99); Potassium 4.0 mmol/L (3.5-5.1); Sodium 135 mmol/L (135-145); Total Protein 5.3 g/dl (6.3-8.2); eGFR > 60.00
[2025-08-18] MEDS: TYLENOL 1000 MG PO ×3 (08:24→22:04)
[2025-08-18] MEDS: PROTONIX 40 MG PO ×2 (08:24→19:49)
[2025-08-18] MEDS: PROPYLTHIOURACIL 50 MG PO ×2 (08:24→19:49)
[2025-08-18] MEDS: CARDIZEM CD 180 MG PO (08:24)
[2025-08-18] MEDS: HEPARIN 5000 UNITS SC ×2 (08:24→19:49)
[2025-08-18] MEDS: MIRALAX PO (08:25)
[2025-08-18] MEDS: AUGMENTIN 500 MG/125 MG 1 TABLET PO ×2 (08:25→19:49)
[2025-08-18] MEDS: LIDOCAINE 4% PATCH 4 PATCH TOPICAL (08:25)
--- NOTE | 2025-08-18 10:04 | W.PN.HOSP.TC ---
Today's Communication/Plan
-
await SNF/discharge; medically stable
Assessment / Plan
Assessment / Plan
Assessment:
Stercoral colitis with constipation and stool impaction
Hx of sigmoidectomy and descending colitis
- s/p disimpaction in ER; continue oral laxatives and monitor bowel movements
- Continue abx day 5/7 - switch to Augmentin
- OP GI evaluation
Severe chronic bronchiectasis and peripheral endobronchial infection in the left lower lobe
Mild chronic endobronchial infection in the right lower lobe
- legionella/s pneumoniae ag negative
- Continue abx day 5/7 - switch to Augmentin
- MRSA negative, stop Vanco
- Pulmonary signed off
- OP Pulm evaluation
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
Severe protein tammy malnutrition
Failure to thrive
- nutrition evaluation
- diet with supplements
- calorie counts
- consider appetite stimulant; daughter reports patient was on Remeron but incorrectly using it as a pain pill - patient reports side effects in relation to incorrect usage. For now defer resuming. Could consider Marinol, d/w daughter.
Patient/daughter would not be agreeable to PEG in future.
Weakness
Ambulatory dysfunction
- PT/OT - SNF recommended; patient agreeable
Essential HTN
- Continue CCB
Hypokalemia
- replete and follow
- Mag normal
Elevated alk.phos
- most likely 2/2 colitis, since pt s/p cholecystectomy
Hyperthyroidism
- on PTU
- TSH low, T3/T4 normal; c/w PTU use
- follows with Dr. Ortiz
Insomnia
- hold Remeron
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
Stage 1 sacrum pressure injury, POA
Stage 1 bilateral heels pressure injury, POA
Chronic back pain
- lidocaine patches, heat pad, Scheduled Tylenol, prn Tramadol
DVT ppx: SC Heparin
Code: DNR/DNI per daughter, Taylor
Dispo: Medically stable for DC to SNF when bed/auth obtained.
Anticipated Discharge: Within 24 hours
Subjective/Interval History
-
Date of Service: August 18, 2025
resting comfortably, no new complaints
Objective Data
-
Labs:
Laboratory Results
08/18/25
06:28
WBC 6.6
Hgb 10.2 L
Hct 30.9 L
Plt Count 169
Sodium 135
Potassium 4.0
Chloride 102
Carbon Dioxide 32 H
BUN 23 H
Creatinine 0.8
Glucose 83
Calcium 8.4
Total Bilirubin 0.2
AST 20
ALT 19
Alkaline Phosphatase 99
Vital Signs:
Vital Signs
Temp Pulse Resp BP Pulse Ox
97.5 F 80 16 165/77 96
08/18/25 07:40 08/18/25 07:40 08/18/25 07:40 08/18/25 07:40 08/18/25 07:40
I&O
08/17/25 08/18/25 08/19/25
06:59 06:59 06:59
Intake Total 1110 / 1110 420 / 420
Balance 1110 / 1110 420 / 420
Physical Exam
-
General: No Apparent Distress and Cachectic
HEENT: Normocephalic and Atraumatic
Respiratory: Negative Wheezes
Cardiac: Regular Rhythm and S1/S2
GI: Soft
Genito-urinary: No Costovertebral Tender
Neuro: AO x 3
Psych: Calm
Data Reviewed
-
Total Time Spent with Patient (in minutes): 42
Labs: Labs Reviewed by me
[2025-08-18 12:55] VITALS: BP 165/77; PULSE 80; O2SAT 96
--- NOTE | 2025-08-18 15:13 | CM ---
Addendum entered by Cony Gerber RN 08/18/25 15:24:
Patient's daughter was updated on discharge tomorrow via phone test. Which was her request.
Original Note:
Reviewed the chart notes and spoke with the patient at the bedside. IMM reviewed. Auth obtained for [facility] for Sunday 08/19.
5 days skilled; 08/19-08/23; NRD 08/23 to [phone];
Auth # [id number]
Plan: Discharge to [facility] on Thursday.
Call report to: [phone]
Fax report to: [phone]
Medical necessity and transport forms on chart.
[2025-08-18 15:35] VITALS: BP 159/70
[2025-08-18] MEDS: ULTRAM 25 MG PO (16:54)
[2025-08-18 23:20] VITALS: BP 163/77
[2025-08-19] MEDS: ULTRAM 25 MG PO (03:22)
[2025-08-19] MEDS: NEURONTIN 100 MG PO (06:04)
[2025-08-19 08:22] VITALS: BP 176/84
[2025-08-19] MEDS: CARDIZEM CD 240 MG PO (09:30)
[2025-08-19] MEDS: PROPYLTHIOURACIL 50 MG PO (09:31)
[2025-08-19] MEDS: PROTONIX 40 MG PO (09:31)
[2025-08-19] MEDS: MIRALAX 17 GRAMS PO (09:31)
[2025-08-19] MEDS: HEPARIN 5000 UNITS SC (09:32)
[2025-08-19] MEDS: AUGMENTIN 500 MG/125 MG 1 TABLET PO (09:32)
[2025-08-19] MEDS: TYLENOL 1000 MG PO (09:32)
[2025-08-19] MEDS: LIDOCAINE 4% PATCH 4 PATCH TOPICAL (09:33)
[2025-08-19] MEDS: CARDIZEM CD PO (09:47)
--- NOTE | 2025-08-19 10:04 | W.PN.HOSP.TC ---
Today's Communication/Plan
-
dc SNF Today
Assessment / Plan
Assessment / Plan
Assessment:
Stercoral colitis with constipation and stool impaction
Hx of sigmoidectomy and descending colitis
- s/p disimpaction in ER; continue oral laxatives and monitor bowel movements
- Continue abx day 6/7 - switch to Augmentin
- OP GI evaluation
Severe chronic bronchiectasis and peripheral endobronchial infection in the left lower lobe
Mild chronic endobronchial infection in the right lower lobe
- legionella/s pneumoniae ag negative
- Continue abx day 6/7 - switch to Augmentin
- MRSA negative, stop Vanco
- Pulmonary signed off
- OP Pulm evaluation
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
Severe protein tammy malnutrition
Failure to thrive
- nutrition evaluation
- diet with supplements
- calorie counts
- consider appetite stimulant; daughter reports patient was on Remeron but incorrectly using it as a pain pill - patient reports side effects in relation to incorrect usage. For now defer resuming. Could consider Marinol, d/w daughter.
Patient/daughter would not be agreeable to PEG in future.
Weakness
Ambulatory dysfunction
- PT/OT - SNF recommended; patient agreeable
Essential HTN
- Continue CCB
Hypokalemia
- replete and follow
- Mag normal
Elevated alk.phos
- most likely 2/2 colitis, since pt s/p cholecystectomy
Hyperthyroidism
- on PTU
- TSH low, T3/T4 normal; c/w PTU use
- follows with Dr. Ortiz
Insomnia
- prn Melatonin
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
Stage 1 sacrum pressure injury, POA
Stage 1 bilateral heels pressure injury, POA
Chronic back pain
- lidocaine patches, heat pad, Scheduled Tylenol, prn Tramadol, HS Gabapentin for nerve component.
DVT ppx: SC Heparin
Code: DNR/DNI per daughter, Taylor
Dispo: SNF today
Anticipated Discharge: Today
Subjective/Interval History
-
Date of Service: August 19, 2025
no new complaints at present
Objective Data
-
Vital Signs:
Vital Signs
Temp Pulse Resp BP Pulse Ox
97.4 F 112 16 176/84 95
08/19/25 08:22 08/19/25 09:30 08/19/25 08:22 08/19/25 09:30 08/19/25 08:22
I&O
08/18/25 08/19/25 08/20/25
06:59 06:59 06:59
Intake Total 420 / 420 720 / 720
Balance 420 / 420 720 / 720
Physical Exam
-
General: No Apparent Distress and Cachectic
HEENT: Normocephalic and Atraumatic
Respiratory: Negative Wheezes
Cardiac: Regular Rhythm and S1/S2
GI: Soft
Neuro: AO x 3
Psych: Calm
Data Reviewed
-
Total Time Spent with Patient (in minutes): 42
Labs: Labs Reviewed by me
--- NOTE | 2025-08-19 10:09 | W.DS.TRANS ---
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
-
Discharge Instructions:
Discharge Diagnosis/Procedures constipation with stercoral colitis, severe
bronchiectasis with LLL pneumonia. Chronic
cachexia
Diet Regular,Supplements
Activity As tolerated
Bathing Restrictions None
Other Services PT,OT
Instructions:
Stand-Alone Forms:
Changes to Home Medications: No
Discharge Medications:
DC Medications w/original date entered in [facility]
pantoprazole 40 mg tablet,delayed release 40 mg PO BID Gastrointestinal Issue 01/05/25
propylthiouracil 50 mg tablet 50 mg PO BID Thyroid 01/05/25
temazepam 15 mg capsule 15 mg PO HS PRN sleep 01/05/25
vit C 250 mg-E 90 mg-zinc 40 mg-copper 1 [id number] chew tablet (PreserVision AREDS-2) 1 tab PO QAM AND QPM Supplement 01/05/25
acetaminophen 325 mg tablet 650 mg (2 x 325 mg) PO Q4HPRN PRN mild pain/FLORENTINO/temp> 100.4F #100 tabs 08/19/25
acetaminophen 500 mg tablet (Tylenol Extra Strength) 1,000 mg (2 x 500 mg) PO TID #100 tabs 08/19/25
amoxicillin 500 mg-potassium clavulanate 125 mg tablet 1 tab PO Q12 #3 tabs 08/19/25
diltiazem HCl 240 mg capsule,extended release 24 hr 240 mg PO DAILY #30 caps 08/19/25
tramadol 50 mg tablet 25 mg (1/2 x 50 mg) PO Q8HPRN PRN moderate to severe pain #15 tabs 08/19/25
Home Medication Changes
Pending Results: No
Total time spent discharging patient (in min): 42
[2025-08-19 11:34] VITALS: BP 168/80
--- NOTE | 2025-08-19 12:03 | CM ---
Pt for dc to [facility] today. 1p p/u
[facility] nursing report: [phone]
Discharge instructions fax: [phone]
== END 2025-08-19 12:04 | DRG 391 ==
LOC: 2 NORTH 18:45
PROVIDERS: ADMITTING PHYSICIAN Internal Medicine; ATTENDING PHYSICIAN Internal Medicine; EMERGENCY PHYSICIAN Emergency Medicine; FAMILY PHYSICIAN Family Medicine; OTHER PHYSICIAN Internal Medicine
DX: K52.89 Other specified noninfective gastroenteritis and colitis (principal); E43 Unspecified severe protein-calorie malnutrition; J18.9 Pneumonia, unspecified organism; J47.0 Bronchiectasis with acute lower respiratory infection; R64 Cachexia; J44.0 Chronic obstructive pulmonary disease with (acute) lower respiratory infection; Z68.1 Body mass index [BMI] 19.9 or less, adult; K59.00 Constipation, unspecified; E87.6 Hypokalemia; N18.31 Chronic kidney disease, stage 3a; I12.9 Hypertensive chronic kidney disease with stage 1 through stage 4 chronic kidney disease, or unspecified chronic kidney disease; Z66 Do not resuscitate; R62.7 Adult failure to thrive; E05.90 Thyrotoxicosis, unspecified without thyrotoxic crisis or storm; L89.151 Pressure ulcer of sacral region, stage 1; G89.29 Other chronic pain; Z79.899 Other long term (current) drug therapy
CPT/HCPCS: 74177; 80053; 80202; 81003; 81015; 82306; 82533; 82607; 82728; 82746; 83540; 83550; 83690; 83735; 84439; 84443; 84481; 85025; 85027; 87040; 87086; 87449; 87641; 87899; 92526; 92610; 96365; 97163; 97167; 97530; 97535; 99285; Q9967

== ENCOUNTER → 2025-08-23 10:47 | Outpatient (REF) | payer OTHER, SELFPAY ==
[2025-08-23 13:08] LABS: Hematocrit 31.1 % (37.0-47.0); Hemoglobin 10.4 g/dL (12.0-16.0); Mean Corp Hgb Conc. 33.4 g/dL (33.0-37.0); Mean Corpuscular Volume 101.3 fL (81.0-99.0); Platelet Count 323 10^3/uL (130-400); Red Cell Dist. Width 15.9 % (11.5-14.5)
[2025-08-23 13:36] LABS: ALT (SGPT) 27 U/L (0-35); AST (SGOT) 35 U/L (14-36); Albumin 3.8 g/dl (3.5-5.0); Alkaline Phosphatase 103 U/L (38-126); Blood Urea Nitrogen 30 mg/dl (7-17); Calcium 9.1 mg/dl (8.4-10.2); Carbon Dioxide 28 mmol/L (22-30); Chloride 100 mmol/L (98-107); Glucose 75 mg/dl (70-99); Magnesium 2.5 mg/dl (1.6-2.3); Potassium 4.0 mmol/L (3.5-5.1); Sodium 136 mmol/L (135-145); Total Protein 6.5 g/dl (6.3-8.2); eGFR > 60.00
== END ==
LOC: OLABWHC 10:47
PROVIDERS: ATTENDING PHYSICIAN Family Medicine
DX: K52.89 Other specified noninfective gastroenteritis and colitis (principal); I10 Essential (primary) hypertension; E43 Unspecified severe protein-calorie malnutrition
CPT/HCPCS: 36415; 80053; 83735; 85027

== ENCOUNTER → 2025-09-04 14:56 | Outpatient (REF) | payer OTHER, SELFPAY | LOC: HWRAD 14:56 | PROVIDERS: ATTENDING PHYSICIAN Internal Medicine Critical Care Medicine; FAMILY PHYSICIAN Family Medicine | DX: R93.89 Abnormal findings on diagnostic imaging of other specified body structures (principal) | CPT/HCPCS: 71250 ==